=== PATIENT | female | born 1945 | race Caucasian/White ===

== ENCOUNTER 2019-12-13 09:51 | Outpatient (CLI) | payer MEDICARE, SELFPAY ==
--- NOTE | 2019-12-13 09:54 | MM_ITS ---
WS: [id number] BILATERAL DIGITAL SCREENING MAMMOGRAPHY WITH CAD CLINICAL INFORMATION: SCREENING HISTORY: Screening mammogram. No current complaints. COMPARISON: January 09, 2017 TECHNIQUE: Bilateral CC and MLO views. FINDINGS: Scattered fibroglandular densities bilaterally. Musa-like secretory calcifications. Vascular calcifica tion. No suspicious focal mass, asymmetry, calcifications, or architectural distortion. No evidence o f malignancy. MM/[place] [id number] IMPRESSION: BI-RADS: 2-Benign FOLLOW UP: 1 Year Follow-up Recommend return to annual screening mammography.
== END 2019-12-13 09:52 | disposition home or self-care (01) ==
LOC: RADSHAW 09:51
PROVIDERS: Family Provider Nurse Practitioner; PCP Nurse Practitioner; Visit Provider Nurse Practitioner
DX: Z12.31 Encounter for screening mammogram for malignant neoplasm of breast (principal)
CPT/HCPCS: 77067

== ENCOUNTER → 2020-06-17 14:54 | Outpatient (BNVA) | payer MEDICARE, SELFPAY | PROVIDERS: Family Provider Nurse Practitioner; PCP Nurse Practitioner; Visit Provider Nurse Practitioner | DX: E11.65 Type 2 diabetes mellitus with hyperglycemia (principal) | CPT/HCPCS: 80053; 80061; 81000; 83036; 85025 ==

== ENCOUNTER → 2020-09-15 11:45 | Outpatient (BNVA) | payer MEDICARE, SELFPAY | PROVIDERS: Family Provider Nurse Practitioner; PCP Nurse Practitioner; Visit Provider Nurse Practitioner | DX: E11.65 Type 2 diabetes mellitus with hyperglycemia (principal); I10 Essential (primary) hypertension; Z79.4 Long term (current) use of insulin | CPT/HCPCS: 80053; 80061; 83036; 85007 ==

== ENCOUNTER 2020-09-18 08:57 | Outpatient (CLI) | payer MEDICARE, SELFPAY ==
--- NOTE | 2020-09-18 10:30 | CT_ITS ---
WS: [id number] Exam: CT chest abd pel w con* Date/Time of Exam: 09/18/2020 9:12 AM Reason For Exam: enlarge lymph nodes DLP: 2280.[address] scans at [facility] use at least one of these dose optimization techniques: automat ed exposure control; mA and/or kV adjustment per patient size (includes targeted exams where dose is matched to clinical indication); or iterative reconstruction. The chest abdomen pelvis are evaluated in the axial plane with sagittal and coronal reformatted image s. Intravenous contrast was administered. CT scan of the chest. There are enlarged right axillary and right subpectoral lymph nodes. The largest right axillary lymph node measures 1.9 cm in greatest short axis dimension. The largest right subpectoral node measures 1 .6 cm in greatest short axis dimension. There is also a mildly enlarged lymph node in the left neck t hat measures 1.3 cm in greatest short axis dimension. A single slightly prominent mediastinal node me asures 1 cm in greatest short axis dimension and is in the anterior pericarinal region. The lungs are bilaterally clear and fully expanded. No pulmonary mass or nodule. The thoracic aorta is normal in c aliber. The central pulmonary arteries are clear. The airway is patent. No destructive bone lesions a re seen. No pleural or pericardial effusion. Coronary artery calcifications. Signs of previous CABG s urgery. No destructive bone lesions. A cardiac pacer is implanted in the left chest wall. CT/CT chest abd pel w con* IMPRESSION: 1. Significant lymphadenopathy in the right axilla, right subpectoral region an d the left neck. A borderline prominent lymph node in the anterior pericarinal region. 2. No evidence of lung mass or infiltrate. CT scan of the abdomen and pelvis with contrast. The liver, gallbladder, stomach and pancreas are unremarkable. Subcentimeter lo w-attenuation density in the spleen which may represent a small cyst. The splee n is not enlarged. The abdominal aorta is normal in caliber. The portal vein an d IVC are patent. The kidneys are unremarkable. No adrenal masses. There is ret roperitoneal lymphadenopathy. The largest node is along the left periaortic reg ion and measures about 1.3 cm in greatest short axis dimension. Small bowel loo ps are normal in caliber. Normal appendix. No significant large bowel abnormali ty seen. Enlarged lymph node noted along the left pelvic sidewall that measures 2.2 cm at greatest short axis dimension. Urinary bladder is intact. Pelvic jeannette ices are noted. Fat filled periumbilical hernia as well as a fat filled ventral hernia noted. No destructive bone lesions. Moderate degenerative changes of th e lower thoracic and lumbar spine. Moderately advanced spinal canal stenosis at L4-5 secondary to degenerative anterolisthesis, ligamentous thickening and fac et hypertrophy. IMPRESSION: 1. Retroperitoneal and left pelvic lymphadenopathy as discussed above. 2. No sign of abdominal mass, ascites or acute process. 3. Additional nonacute findings as discussed above.
[2020-09-18] MEDS: iohexol 300 mg/mL 100 mL Btl IV (10:52)
[2020-09-18] MEDS: iohexol 300 mg/mL 50 mL Btl PO (10:53)
== END 2020-09-18 08:58 | disposition home or self-care (01) ==
PROVIDERS: PCP Nurse Practitioner; Visit Provider Nurse Practitioner
DX: R59.0 Localized enlarged lymph nodes (principal)
CPT/HCPCS: 71260; 74177; Q9967

== ENCOUNTER 2020-09-21 07:59 | Outpatient (CLI) | payer MEDICARE, SELFPAY ==
--- NOTE | 2020-09-21 08:06 | CT_ITS ---
WS: [id number] CT NECK WITH CONTRAST HISTORY: Enlarged lymph nodes. History of non-Hodgkin's lymphoma. TECHNIQUE: Contiguous 5 mm axial images are performed through the neck with intravenous contrast. Sag ittal and coronal reformats are also submitted. All CT scans at [facility] use at least o ne of these dose optimization techniques: automated exposure control; mA and/or kV adjustment per pat ient size (includes targeted exams where dose is matched to clinical indication); or iterative recons truction. CONTRAST: CONTRAST: Omnipaque 300; 95 mL IV. DLP: 2427.75 mGycm COMPARISON: None available. Nasopharynx, oropharynx, hypopharynx and larynx are unremarkable. No soft tissue masses or abnormal e nhancement. Torus tubarius and fossa of Rosenmuller and parapharyngeal fat are normal. There are small subcentimeter bilateral cervical chain lymph nodes above the level of the thyroid car tilage. At the level VA and VB there are bilateral abnormal lymph nodes. Necrotic lymph node in the L EFT neck at level VB corresponds to the palpable abnormality. This lymph node measures 15 x 20 mm and is necrotic with peripheral enhancement. There are additional enlarged lymph nodes extending inferio rly. Bilateral supraclavicular lymph nodes. Largest supraclavicular lymph node on the LEFT measures 1 2 mm and is rounded. Markedly enlarged RIGHT axillary lymph nodes measuring up to 17 mm which were de scribed on 09/18/2020. Thyroid gland and salivary glands are normally enhancing with no masses. Advanced degenerative changes at C5-6 and C6-7. Visualized portions of the skull base demonstrate no abnormalities. Orbits and globes are within norm al limits. No soft tissue masses. Visualized paranasal sinuses and mastoid air cells are normal. Motion artifact through the upper thorax. Prior median sternotomy. Dual lead LEFT subclavian pacer. CT/CT neck w con* [id number] IMPRESSION: 1. Bilateral level VA and VB, supraclavicular and RIGHT axillary lymphadenopat hy. Consistent with a history of non-Hodgkin's lymphoma. 2. No laryngeal mass identified.
[2020-09-21] MEDS: iohexol 300 mg/mL 100 mL Btl IV (08:28)
== END 2020-09-21 08:00 | disposition home or self-care (01) ==
LOC: RADWPI 08:02
PROVIDERS: PCP Nurse Practitioner; Visit Provider Nurse Practitioner
DX: R59.9 Enlarged lymph nodes, unspecified (principal)
CPT/HCPCS: 70491; Q9967

== ENCOUNTER 2020-10-21 13:05 | Outpatient (CLI) | payer MEDICARE, SELFPAY ==
--- NOTE | 2020-10-21 19:28 | ONC CON_ITS ---
Dr. Kothari New Patient Note Patient: Tiana Thompson Unit #: [id number]: 1945 Dicatated By: Crispin Kothari M.D.Date of Visit: Oct 21, 2020 Onc MED New Patient/Consult Referring Physician: Claire Fonseca Chief Complaint: Lymphoma. History of Present Illness: This is a 74-year-old woman with follicular lymphoma, stage III, initially diagnosed by left cervical lymph node biopsy in December 2017. She had presented with left cervical lymphadenopathy. At the time she was living in [place]. She says she had been aware of it for least several years prior to undergoing left cervical lymph node biopsy on 12/28/2017. Pathology showed B-cell follicular lymphoma which was CD20 positive, CD5 negative, CD10 positive, and BCL-2 positive by IHC. Flow cytometry showed a monotypic B-cell population with cytoplasmic lambda light chain restriction which was positive for CD19, CD20, CD10, and CD38 and negative for CD5, CD43, surface light chains, and CD30. Her staging PET/CT showed diffuse lymphadenopathy within the neck, axilla, abdomen, and pelvis. She was recommended to have treatment with R-CVP, but she preferred to manage it with natural preparations. As such, it has otherwise remained untreated. She moved to this area about a year and a half ago and she is seen now for further management of the lymphoma. She has multiple other medical illnesses including hypertension, hyperlipidemia, type 2 diabetes, and coronary artery disease. She has had several previous TIAs. She is a non-smoker. Her main complaint is that she is having a lot more pain now, which she assumes is due to the lymphoma. The most significant pain is in her belly and groin area on both sides, and she complains that her belly is getting bigger. She is also sore in her neck and armpits. She has fatigue, and she needs to take naps. She moves slowly, but she is able to do light work. ECOG score is 1. Her appetite is not as good, but her weight is stable. She has not had fever. She does have some sweating at night, but not as much now. She has pain in the neck area and she sometimes has trouble swallowing. She says she has shallow breathing, and she does get short of breath with activity. She has cough, but that has been going on for years. She has been having pain in the sternal area ever since her bypass surgery in 2008. She does not otherwise have chest pain. She says she is slightly nauseated almost all the time. She has acid reflux, which she manages with probiotic. Her bowel function has been okay. She has urinary frequency and nocturia, and she also has some urgency with urination. She has some arthritis pain in her hands and feet, and she also has back pain. Lately she has been hurting more down her right leg. That pain is worse with activity. She does not complain of headache. She does get lightheaded and she has a history of vertigo. She now has some carpal tunnel symptoms on the left. Past Medical History: Her medical history includes coronary artery disease, history of TIAs, hyperlipidemia, hypertension, follicular lymphoma, and type II diabetes. Past Surgical History: Her surgical/procedural history includes removal of benign lesions from left side in 1946 and in 1947, replacement of permanent pacemaker in 2014, excision of squamous cell skin cancer in 2009, triple-vessel coronary artery bypass in 2008, carpal tunnel release on the right in 2005, right oophorectomy in 1982, and surgery for ectopic in 1978. Medications: Aspirin Adult 1 Tablet (of 325 mg) Oral daily, Cranberry 1 Capsule Oral daily, Garlic 1 Capsule Oral daily, Celine Root 1 Capsule Oral daily, Ginkoba 1 Tablet Oral daily, Levemir 8 Units (of 100 Units/mL) Subcutaneous t.i.d., Magnesium 1 Capsule Oral daily, NovoLOG (100 Units/mL) Subcutaneous Take as Directed, [place] 3 1 Capsule Oral daily, onion 1 Capsule Oral daily, Potassium Iodide 1 Capsule Oral daily, Taurine 1 Capsule Oral daily, Turmeric 1 Tablet Oral daily, Vitamin B12 1 Tablet Oral daily, Vitamin B6 1 Tablet Oral daily, Vitamin C 1 Capsule (of 500 mg) Oral daily, Vitamin D3 1 Capsule Oral daily Allergies: Atorvastatin Calcium Social History: Ms. Thompson is . She is a non-smoker. She does not drink alcohol. Family History: Father had diabetes and of stroke at age 80. Mother of pneumonia at age 80. She also had breast cancer. Her grandmother had liver cancer and an aunt had uterine cancer. Review Of Symptoms: Constitutional - She has fatigue, and she has to take naps. She generally moves slow, but she is able to do light work. Her appetite is not as good, but her weight is stable. She has no fever. She has had night sweating, but recently not as much. ECOG score is 1, Eyes - She has cataracts and she has had gradual decline in visual acuity, ENMT - She has hearing loss and tinnitus. No sinus congestion/drainage. No mouth sores. She has some pain in her neck/throat and she sometimes has difficulty swallowing, Hematologic/Lymphatic - She has easy bruising. She has some soreness and tenderness associated with lymph nodes in her neck and in her armpits, Respiratory - She has shallow breathing and she has shortness of breath with activity. She has had cough for years. No pleuritic pain or hemoptysis, Cardiovascular - She has been having pain in her sternum ever since her heart surgery. She has no angina pain and no palpitations, Gastrointestinal - She says she is slightly nauseated almost all the time. She has acid reflux. No diarrhea or constipation. No blood in the stool or black stools. She has pain in the abdominal area and she also complains that her belly has been getting bigger, Genitourinary (F) - No dysuria or hematuria. She has urinary frequency and nocturia and she has some urgency with urination. She occasionally has dribbling, Musculoskeletal - She has had chronic pain in her hands and feet and she also has back pain. Lately she has been hurting more down her right leg. It is worse when she walks, Integumentary - She has no skin rash. She has had a skin cancer removed, Neurologic - No headache or dizziness. She gets lightheaded and she has a history of vertigo. She now has symptoms of carpal tunnel on her left side. No other focal neurologic symptoms, Psychiatric - No anxiety or depression. She is awake a lot at night. Vital Signs: Performed on Oct 21, 2020 14:03: 0, 35.66 (HIGH), 1.70 sq.m, 58.00 in, 96 %, 60 /min, 22 /min, 209/97 mm(hg) (HIGH), 98.2 F (LOW), and 170.6 lbs (HIGH). Physical Examination: Constitutional - She appears somewhat weak generally, Eyes - Sclerae nonicteric. Conjunctivae clear, ENMT - No lesions noted in the oral cavity, Neck - No mass or thyromegaly, Hematologic/Lymphatic - There are multiple small nodes palpable on the left side of the neck. I am not able to palpate any axillary adenopathy, Respiratory - Lungs are clear with good air movement bilaterally, Cardiovascular - Heart rhythm is regular. There is no murmur, gallop, or rub noted, Abdomen - Moderately distended. Liver and spleen are not enlarged. There is no abdominal mass or ascites noted. I do not feel any inguinal adenopathy, Back/Spine - No spine or CVA tenderness noted, Extremities - Mild lower extremity edema. There is a palpable dorsalis pedis pulse on the left. I am not able to palpate any pedal pulses on the right, Integumentary - No rashes. No suspicious skin lesions noted, Neurologic - No focal neurologic deficits noted. Lab/Imaging: Her laboratory studies from 09/15/2020 included CBC showing hemoglobin 14.8 g, white blood cell count 9500, and platelet count 252,000. Comprehensive metabolic profile showed normal renal function with BUN 20 and creatinine 0.8 mg/dL. The bilirubin and liver enzymes were normal. Hemoglobin A1c was 7.8% compared to 9.3% in May 2020. CT scans of the chest, abdomen, and pelvis on 09/18/2020 showed enlarged right axillary and right subpectoral lymph nodes, with the largest right axillary node measuring 1.9 cm in greatest dimension. A slightly prominent mediastinal lymph nodes measured up to 1 cm in the anterior pericarinal region. The liver appeared unremarkable and the spleen was not enlarged. There was retroperitoneal lymphadenopathy with the largest node along the left periaortic region measuring 1.3 cm. An enlarged left pelvic sidewall lymph node measured 2.2 cm. Other findings include fat filled periumbilical hernia and fat filled ventral hernia. Moderate degenerative changes were noted in the lower thoracic and lumbar spine. There was moderately advanced spinal canal stenosis at L4-L5 secondary to degenerative anterolisthesis, ligamentous thickening, and facet hypertrophy. Neck CT on 09/21/2020 showed bilateral level VA and VB and supraclavicular lymphadenopathy. The level 5B node appeared necrotic and measured 1.5 x 2.0 cm. The largest supraclavicular lymph node on the left measured 12 mm. Also noted were advanced degenerative changes at C5-6 and C6-7. Impression: 1. Patient with follicular lymphoma, stage III, initially diagnosed by left cervical lymph node biopsy in December 2017. 2. Thus far her CT scans have shown fairly widespread but not bulky lymphadenopathy, and it is uncertain to what extent, if any, the lymphoma is symptomatic. 3. Her CT scans also show degenerative disease of the spine, and there is moderately advanced spinal canal stenosis at L4-5. Her other medical illnesses include: 4. Hypertension. 5. Hyperlipidemia. 6. Type 2 diabetes. 7. Coronary artery disease. 8. She has a history of TIAs. Plan: I reviewed the recent CT findings I also reviewed the CT images with the patient and her daughter. She has stage III follicular lymphoma. By CT scan she has fairly diffuse lymphadenopathy, but it is not bulky and it is unclear to what extent it may be symptomatic. Based on the initial staging PET/CT from 2017, it really does not appear to have shown significant interval progression, and at this point my inclination is just to continue with observation/expectant management. The other concern is that she is having significant pain. It may be due to degenerative arthritis/degenerative disease of the spine, but I am really not certain of that. I am wondering if she may not have some component of arterial insufficiency in her right leg. As such, I will schedule her for an arterial Doppler of the right leg when she comes in for her echocardiogram and CT of the sternum, currently scheduled for the of this month. In the meantime, I will have her start meloxicam 7.5 mg daily and I also will have her start famotidine 20 mg at bedtime. I will tentatively plan a follow-up visit in 1 month. Signed By: Crsipin Kothari M.D. <<Signature on File>>
== END 2020-10-21 13:06 | disposition home or self-care (01) ==
LOC: ONCMED 13:10
PROVIDERS: PCP Nurse Practitioner; Visit Provider Internal Medicine Medical Oncology
DX: C82.98 Follicular lymphoma, unspecified, lymph nodes of multiple sites (principal); I10 Essential (primary) hypertension; E78.5 Hyperlipidemia, unspecified; E11.59 Type 2 diabetes mellitus with other circulatory complications; I25.10 Atherosclerotic heart disease of native coronary artery without angina pectoris; Z86.73 Personal history of transient ischemic attack (TIA), and cerebral infarction without residual deficits; Z79.899 Other long term (current) drug therapy
CPT/HCPCS: 99205

== ENCOUNTER 2020-11-03 10:45 | Outpatient (CLI) | payer MEDICARE, SELFPAY ==
--- NOTE | 2020-11-03 10:51 | USCV_ITS ---
JayTiana Age: 74 Gender: F : 1945 Exam Date: 11/03/2020 11:20 Ordering Phys: Crispin Kothari MD Technologist: Exam Location: [facility] [place]_ Indication: CLAUDICATION RIGHT LEFT Brachial 191.00 mmHg Brachial 197.00 mmHg Pressure (mmHg) Waveform Pressure (mmHg) Waveform 210.00 DPA 122.00 Pre-Exercise Toe Pressure 0.62 Pre-Exercise Toe/Brachial Index FINDINGS Normal resting JOO on the right side Slightly diminished resting TBI on the right side The PVR waveforms are of low amplitude with the loss of dicrotic notch CONCLUSIONS Features of mild peripheral artery disease on the right side Dr Chente Melendrez MD FAC (Electronically Signed) Final Date: 03 November 2020 17:59 S
--- NOTE | 2020-11-03 11:00 | USCV_ITS ---
[place], [place] Age: 74 Gender: F : 1945 Exam Date: 11/03/2020 12:08 Ordering Phys: Jigar Matthew MD ([email or web address]) Technologist: Deandre Carlos Exam Location: [facility] [place] Indication: SOB BP: 134 / 80 HR: 60 Rhythm: Sinus Technical Quality: Adequate MEASUREMENTS (Male / Female) Normal Values 2D ECHO LV Diastolic Diameter PLAX 4.4 cm 4.2 - 5.9 / 3.9 - 5.3 cm LV Systolic Diameter PLAX 3.4 cm IVS Diastolic Thickness 1.3 cm 0.6 - 1.0 / 0.6 - 0.9 cm IVS Systolic Thickness 1.4 cm LVPW Diastolic Thickness 1.3 cm 0.6 - 1.0 / 0.6 - 0.9 cm LVPW Systolic Thickness 1.2 cm LVOT Diameter 2.0 cm LV Ejection Fraction 2D Teich 46.2 % LV Ejection Fraction MOD 2C 69.2 % LV Ejection Fraction 2C AL 69.1 % LA Diameter 4.7 cm LA Width 4.3 cm LA Height 5.1 cm RA Width 3.7 cm RA Height 4.7 cm Aorta at Sinotubular Diameter 2.2 cm M-MODE LV Diastolic Diameter MM 3.9 cm 4.2 - 5.9 / 3.9 - 5.3 cm LV Systolic Diameter MM 2.5 cm LV Ejection Fraction MM Teich 66.1 % IVS Diastolic Thickness MM 1.5 cm 0.6 - 1.0 / 0.6 - 0.9 cm IVS Systolic Thickness MM 1.7 cm LVPW Diastolic Thickness MM 1.7 cm 0.6 - 1.0 / 0.6 - 0.9 cm LVPW Systolic Thickness MM 2.0 cm RV Diastolic Diameter MM 2.8 cm Aortic Annulus Diameter 3.1 cm LA Ao Ratio MM 1.5 MV E Point Septal Separation 0.5 cm DOPPLER AV Peak Velocity 163.0 cm/s LVOT Peak Velocity 89.0 cm/s AV Area Cont Eq vti 1.1 cm squared AV Area Cont Eq pk 1.7 cm squared MV Area PHT 4.9 cm squared Mitral E to A Ratio 1.8 MV E' Velocity 95.0 cm/s TR Peak Velocity 265.3 cm/s TR Peak Gradient 28.2 mmHg TV Peak E Velocity 89.0 cm/s Right Atrial Pressure 8.0 mmHg Pulmonary Artery Systolic Pressu 36.2 mmHg FINDINGS Left Ventricle Normal left ventricular cavity size. Normal left ventricular systolic function. No regional wall motion abnormalities. Left ventricular ejection fraction is estimated at 60 %. Grade III/IV diastolic dysfunction (restrictive filling pattern), severely elevated filling pressures. Right Ventricle The right ventricle is normal in size and function. Right Atrium The right atrium is normal in size. Left Atrium Moderately increased left atrial size. Mitral Valve Moderately thickened mitral valve. No mitral valve stenosis. Moderate mitral valve regurgitation. Aortic Valve Moderate aortic valve calcification. Moderate aortic valve stenosis, mean gradient 6.2 mmHg, SHERRON 1.1 cm squared. No aortic valve regurgitation. Tricuspid Valve [id number] tricuspid valve regurgitation. Pulmonic Valve Structurally normal pulmonic valve without significant stenosis. There is no pulmonic regurgitation. Pericardium Normal pericardium without effusion. Aorta Normal ascending aorta dimension. CONCLUSIONS 1-Normal left ventricular cavity size. Normal left ventricular systolic function. No regional wall motion abnormalities. Left ventricular ejection fraction is estimated at 60 %. Grade III/IV diastolic dysfunction (restrictive filling pattern), severely elevated filling pressures. 2-Moderately increased left atrial size. 3-Moderately thickened mitral valve. No mitral valve stenosis. Moderate mitral valve regurgitation. 4-Moderate aortic valve calcification. Moderate aortic valve stenosis, mean gradient 6.2 mmHg, SHERRON 1.1 cm squared. No aortic valve regurgitation. 9-Arbw-ei-moderate tricuspid valve regurgitation. 6-Right atrial pressure is around 5 mm of mercury. 7-There are no prior echocardiogram studies to compare. Jigar Matthew MD (Electronically Signed) Final Date: 04 November 2020 18:40 S
[2020-11-03] MEDS: iohexol 350 mg/mL 100 mL Btl IV (12:59)
--- NOTE | 2020-11-03 13:00 | CT_ITS ---
WS: [id number] CTA OF THE CHEST WITH PULMONARY EMBOLISM PROTOCOL TECHNIQUE: High-resolution contrast enhanced CTA of the chest with coronal and sagittal reformatted i mages with pulmonary embolism protocol. MIP images are also reviewed. CLINICAL INFORMATION: R07.89 - Other chest pain COMPARISON: CT September 18, 2020 DLP: 586.[address] scans at [facility] use at least one of these dose optimization techniques: automat ed exposure control; mA and/or kV adjustment per patient size (includes targeted exams where dose is matched to clinical indication); or iterative reconstruction. FINDINGS: Proximal main pulmonary arteries are normal. Segmental and subsegmental pulmonary arteries are normal . No evidence of pulmonary embolus. Prior sternotomy. No mediastinal or hilar lymphadenopathy. Normal GE junction. Moderate chronic emphysematous changes. No acute pulmonary infiltrates. No focal consol idation or pleural fluid. Again seen is lymphadenopathy right subpectoral lymph nodes extending to the right axilla. Bulky righ t axillary lymphadenopathy similar to previous. Largest right axillary lymph node measures approximat karina 3.2 CM. Additional prominent lymph nodes in the lower neck and supraclavicular regions bilaterall y similar to previous. Partially visualized lymphadenopathy in the upper abdomen and periaortic Adrenal glands are normal. Mild thoracic kyphosis. Hypertrophic changes thoracic spine. CT/CT angio chest PE protcl [id number] IMPRESSION: 1. No evidence for pulmonary embolus. 2. No acute pulmonary infiltrates. 3. Again seen is the bulky right subpectoral axillary lymphadenopathy with mar kedly enlarged lymph nodes. Recommend clinical correlation. 4. Prominent lymph nodes partially visualized in the lower neck and subclavicu lar regions bilaterally. 5. Lymphadenopathy partially visualized upper abdomen and periaortic similar t o previous.
== END 2020-11-03 10:46 | disposition home or self-care (01) ==
PROVIDERS: PCP Nurse Practitioner; Visit Provider Internal Medicine Cardiovascular Disease
DX: I70.221 Atherosclerosis of native arteries of extremities with rest pain, right leg (principal); R06.02 Shortness of breath; R07.9 Chest pain, unspecified; R59.0 Localized enlarged lymph nodes; I08.3 Combined rheumatic disorders of mitral, aortic and tricuspid valves
CPT/HCPCS: 71275; 93306; 93922

== ENCOUNTER 2020-11-03 10:49 | Outpatient (CLI) | payer MEDICARE, SELFPAY ==
[2020-11-03 11:56] LABS: Blood Urea Nitrogen 15 mg/dL (8-23)
== END 2020-11-03 10:50 | disposition home or self-care (01) ==
LOC: RAD 10:53
PROVIDERS: PCP Nurse Practitioner; Visit Provider Internal Medicine Medical Oncology
DX: C82.98 Follicular lymphoma, unspecified, lymph nodes of multiple sites (principal)
CPT/HCPCS: 36415; 82565; 84520

== ENCOUNTER 2020-11-24 08:55 | Outpatient (CLI) | payer MEDICARE, SELFPAY ==
[2020-11-24 10:49] LABS: Basophils # 0.1 10^3/uL (0.0-0.1); Basophils % 0.9 %; Eosinophils # 0.3 10^3/uL (0.0-0.8); Hematocrit 41.7 % (37.0-47.0); Hemoglobin 13.8 g/dL (11.5-15.3); Lymphocytes # 1.9 10^3/uL (0.8-4.8); Mean Corpuscular HGB Conc 33.1 g/dL (30.0-36.0); Mean Corpuscular Volume 96.8 fL (81-99); Mean Platelet Volume 10.4 fL (7.4-10.4); Monocytes # 0.5 10^3/uL (0.2-0.9); Monocytes % 7.2 %; Neutrophils # 3.85 10^3/uL (1.8-7.7); Neutrophils % 57.7 %; Nucleated Red Blood Cells % 0 %; Platelet Count 204 10^3/cmm (130-400); Red Blood Count 4.31 10^6/uL (4.1-5.3); Red Cell Distribution Width 12.1 % (12.1-15.1); White Blood Count 6.7 10^3/uL (4.0-10.0)
[2020-11-24 11:19] LABS: Alanine Aminotransferase 14 U/L (0-33); Alkaline Phosphatase 67 IU/L (35-105); Anion Gap 13.2 (5-19); Aspartate Amino Transferase 17 U/L (0-32); Blood Urea Nitrogen 21 mg/dL (8-23); Calcium 9.8 mg/dL (8.5-10.5); Carbon Dioxide 27 mmol/L (22-29); Chloride 102 mmol/L (98-107); Globulin 2.8 g/dL (1.3-4.6); Glucose 115 mg/dL (65-115); Lactate Dehydrogenase 199 U/L (135-214); Osmolality Calculated 290 mOsm/kg (285-295); Potassium 4.2 mmol/L (3.5-5.1); Sodium 138 mmol/L (136-145); Thyroid Stimulating Hormone 3.16 uIU/mL (0.27-4.20); Total Bilirubin 0.5 mg/dL (0.15-1.2); Total Protein 6.8 g/dL (6.6-8.7)
[2020-11-24 14:28] LABS: Estmated Average Glucose 151; Hemoglobin A1C 6.9 % (4.0-6.0)
--- NOTE | 2020-11-29 21:49 | ONC FU_ITS ---
[facility] Patient Note Patient: Tiana Thompson Unit #: [id number]: 1945 Dictated By: Claire MerazDate of Visit: Nov 24, 2020 Onc MED Follow-Up/Prog Note Chief Complaint: Lymphoma. History of Present Illness: Ms Thompson is a 74-year-old woman with follicular lymphoma, stage III, initially diagnosed by left cervical lymph node biopsy in December 2017. She had presented with left cervical lymphadenopathy. At the time she was living in [place]. She says she had been aware of it for least several years prior to undergoing left cervical lymph node biopsy on 12/28/2017. Pathology showed B-cell follicular lymphoma which was CD20 positive, CD5 negative, CD10 positive, and BCL-2 positive by IHC. Flow cytometry showed a monotypic B-cell population with cytoplasmic lambda light chain restriction which was positive for CD19, CD20, CD10, and CD38 and negative for CD5, CD43, surface light chains, and CD30. Her staging PET/CT showed diffuse lymphadenopathy within the neck, axilla, abdomen, and pelvis. She was recommended to have treatment with R-CVP, but she preferred to manage it with natural preparations. As such, it has otherwise remained untreated. She moved to this area about a year and a half ago and she was seen by Dr Kothari in for further management of the lymphoma. She has multiple other medical illnesses including hypertension, hyperlipidemia, type 2 diabetes, and coronary artery disease. She has had several previous TIAs. She is a non-smoker. Her main complaint was that she was having a lot more pain, which she assumed was due to the lymphoma. The most significant pain was in her belly and groin area on both sides, and she complains that her belly was getting bigger. She was also sore in her neck and armpits. She has fatigue. She was having some sweating at night, but not as much now. She has pain in the neck area and she sometimes has trouble swallowing. She says she has shallow breathing, and she does get short of breath with activity. She has cough, but that has been going on for years. She has been having pain in the sternal area ever since her bypass surgery in 2008. She does not otherwise have chest pain. She was slightly nauseated almost all the time. She remains on observation at this time. She had stated that she has been very active around the house. She states she jumps on her little trampoline and is up to 400 jumps. She states she has been doing this for about 3 years. Her pain is some better on the meloxicam and her heartburn/nausea is some better on the Pepcid 20 mg at bedtime. She did have an arterial Doppler of the right leg which was negative for significant arterial insufficiency. She also had a CT of the chest on 11/03/2020 is reported there is no evidence for pulmonary embolus. There were no acute pulmonary infiltrates. There was bulky right subpectoral axillary lymphadenopathy with markedly enlarged lymph nodes prominent lymph nodes partially visualized in the lower neck and subclavicular regions bilaterally. Lymphadenopathy was partially visualized upper abdomen and periaortic similar to previous scan from September 18, 2020. She is here today for follow-up. She states overall she is about the same- no worse and maybe a little better . She continues to jump on her trampoline. She states that she is having neck shoulder and axillary pain but is about the same as what it was at her visit in October. She states she is had productive cough for years and is unchanged. She states she is had no night sweats and no weight loss. She is accompanied by her daughter. They do tend to use alternative techniques such as herbal and linen/wool for healing. She has no new complaints today. Past Medical History: Coronary artery disease History of TIAs Hyperlipidemia Hypertension Non-hodgkins lymphoma Type II diabetes Past Surgical History: Removal of benign lesions from left side in 1946 and in 1947 Replacement of permanent pacemaker in 2014 Excision of squamous cell skin cancer in 2009 Triple-vessel coronary artery bypass in 2008 Carpal tunnel release on the right in 2005 Right oophorectomy in 1982 Surgery for ectopic in 1978 Allergies: Atorvastatin Calcium Medications: amLODIPine Besylate 1 Tablet (of 2.5 mg) Oral daily amLODIPine Besylate 1 Tablet (of 2.5 mg) Oral daily Cranberry 1 Capsule Oral daily Famotidine 1 Tablet (of 20 mg) Oral daily PRN Garlic 1 Capsule Oral daily Celine Root 1 Capsule Oral daily Ginkoba 1 Tablet Oral daily Levemir 8 Units (of 100 Units/mL) Subcutaneous t.i.d. Magnesium 1 Capsule Oral daily NovoLOG (100 Units/mL) Subcutaneous Take as Directed [place] 3 1 Capsule Oral daily onion 1 Capsule Oral daily Potassium Iodide 1 Capsule Oral daily Taurine 1 Capsule Oral daily Turmeric 1 Tablet Oral daily Vitamin B12 1 Tablet Oral daily Vitamin B6 1 Tablet Oral daily Vitamin C 1 Capsule (of 500 mg) Oral daily Vitamin D3 1 Capsule Oral daily Family History: Ms. Thompson's mother at age 80: PNEUMONIA, and BREAST CANCER. Ms. Thompson's father at age 80: STROKE. Father had diabetes and of stroke at age 80. Mother of pneumonia at age 80. She also had breast cancer. Her grandmother had liver cancer and an aunt had uterine cancer. Social History: Ms. Thompson is . Ms. Thompson has never smoked. She has no history of drinking. She is a non-smoker. She does not drink alcohol. Review Of Symptoms: Constitutional Denies fevers, chills, night sweats, excessive fatigue or weight loss. Eyes Denies significant visual changes. No diplopia. No amaurosis. ENMT Denies changes in hearing, sore throat, mouth sores, difficulty or changes in swallowing ability, and/or sinus drainage. Hematologic/Lymphatic Denies easy bruising or bleeding. The patient denies any tender or palpable lymph nodes. Respiratory Denies dyspnea on exertion, chest pain, cough or hemoptysis. Denies orthopnea. Cardiovascular Denies anginal chest pain, palpitations or orthopnea. Gastrointestinal Denies nausea, vomiting, diarrhea, GI bleeding, or constipation. Denies change in bowel habits and/or stool color, no heartburn or early satiety. Genitourinary (F) No hematuria, hesitancy, incontinence, vaginal bleeding, discharge or other problems with urination. Musculoskeletal Denies joint pain, swelling or redness. No decreased range of motion. Integumentary Denies chronic rashes, inflammation, ulcerations or skin changes. Neurologic Denies headache, blurred vision, and no areas of focal weakness or numbness. Normal gait. No sensory problems. Psychiatric Denies insomnia, depression, isrrael or mood swings. Vital Signs: Performed on Nov 24, 2020 09:23 Height - 58.00 in Weight - 170.6 lbs BSA - 1.70 sq.m BMI - 35.66 (HIGH) Temperature - 97.4 F (LOW) Pulse - 60 /min Respiration - 18 /min BP - 197/100 mm(hg) (HIGH) O2 Sat - 98 % Pain - 6,1 - No physically strenuous activity, but ambulatory and able to carry out light or sedentary work (e.g. office work, light house work). (ECOG) Physical Examination: Constitutional Alert, oriented, no acute distress. Skin pink, warm and dry. Head Normocephalic; atraumatic. Eyes Conjunctivae and sclerae are clear and without icterus. Pupils are reactive and equal. Respiratory Lungs are clear to auscultation without rhonchi or wheezing. Cardiovascular Regular rate and rhythm of heart without murmurs,clicks, gallops or rubs. Abdomen Non-tender, non-distended, no masses or ascites. Good bowel sounds noted in all quads. No guarding or rebound tenderness. No pulsatile masses. Back/Spine Non-tender to palpation. Extremities No visible deformities, no cyanosis, clubbing or edema. Musculoskeletal No tenderness or swelling, normal range of motion without obvious weakness. Integumentary No rashes or lesions. Neurologic No sensory or motor deficits, normal cerebellar function, normal gait. Psychiatric Alert and oriented times three. Coherent speech. Verbalizes understanding of our discussions today. Laboratory:Test performed on Nov 24, 2020 10:20 LDH (Total) 199 U/L Sodium 138 mmol/L TSH 3.16 uIU/mL Potassium 4.2 mmol/L Chloride 102 mmol/L Est Avg Glucose (eAG) 151 mg/dL CO2 27 mmol/L Anion Gap 13.2 BUN 21 mg/dL Creatinine 0.7 mg/dL Cr Clearance (Est) 86.1400 mL/min Glucose 115 mg/dL Osmolality - Calculated 290 mOsm/kg Calcium 9.8 mg/dL Protein, Total 6.8 g/dL Albumin 4.0 g/dL Globulin 2.8 g/dL Bilirubin, Total 0.5 mg/dL ALT (SGPT) 14 U/L AST (SGOT) 17 U/L Alkaline Phosphatase 67 IU/L Hemoglobin A1C % 6.9 % WBC 6.7 10 3/uL RBC 4.31 10 6/uL HGB 13.8 g/dL HCT 41.7 % MCV 96.8 fL MCH 32.0 pg MCHC 33.1 g/dL RDW 12.1 % Platelet Count 204 10 3/cmm MPV 10.4 fL Neutrophils 3.85 10 3/uL Lymphocytes 1.9 10 3/uL Monocytes 0.5 10 3/uL Eosinophils 0.3 10 3/uL Basophils 0.1 10 3/uL Neutrophil % 57.7 % Lymphocyte % 29.0 % Monocyte % 7.2 % Eosinophil % 5.0 % Basophils % 0.9 % NRBC % 0 % Impression: 1. Patient with follicular lymphoma, stage III, initially diagnosed by left cervical lymph node biopsy in December 2017. 2. Thus far her CT scans have shown fairly widespread but not bulky lymphadenopathy, and it is uncertain to what extent, if any, the lymphoma is symptomatic. 3. Her CT scans also show degenerative disease of the spine, and there is moderately advanced spinal canal stenosis at L4-5. Her other medical illnesses include: 4. Hypertension. 5. Hyperlipidemia. 6. Type 2 diabetes. 7. Coronary artery disease. 8. She has a history of TIAs. Dr Kothari reviewed the recent CT findings and the CT images with the patient and her daughter. She has stage III follicular lymphoma. By CT scan she has fairly diffuse lymphadenopathy, but it is not bulky and it is unclear to what extent it may be symptomatic. Based on the initial staging PET/CT from 2017, it really does not appear to have shown significant interval progression, and at her followup in October 2020, Dr Kothari recommended to just to continue with observation/expectant management. The other concern is that she is having significant pain. It may be due to degenerative arthritis/degenerative disease of the spine, but that is ucertain. She continues to have significant pain per her report with no obvious reasons on her arterial doppler or recent CT. There were no reports of abnormalities of the sternum where she complains of the most pain at this time. Plan: PROBLEMS ADDRESSED TODAY: 1. FOLLICULAR LYMPHOMA: A. I have requested CBC CMP LDH hemoglobin A1c (for type 2 diabetes) to be drawn today. The most recent labs I can find and [facility] were from September 15, 2020. Her blood counts were normal as well as her chemistry. Her hemoglobin A1c was elevated at that time. B. I have also PET CT imaging to further evaluate her disease. Especially complains of the sternum which are showing no abnormalities on CT scans. C. We did discuss pain treatment options for complaints of pain however she is currently doing her herbal supplements and does not want any further prescriptions besides the meloxicam for now. D. We will plan to see her back in 2 weeks if she has had her PET/CT by then. We will also review her labs with her at that time. E. Mrs. Thompson and her daughter were encouraged to contact us in interim should questions or problems arise. F. Total time spent with Ms. Verma and her daughter and review of her current symptoms, her treatment plan???that is her personal treatment plan and recommendations as well as review of her records and subsequent documentation was greater than 60 minutes. Signed By: Claire Meraz-, CNP Crispin Kothari MD <<Signature on File>>
== END 2020-11-24 08:56 | disposition home or self-care (01) ==
LOC: ONCMED 08:59
PROVIDERS: PCP Nurse Practitioner; Visit Provider Nurse Practitioner
DX: C82.98 Follicular lymphoma, unspecified, lymph nodes of multiple sites (principal); E11.65 Type 2 diabetes mellitus with hyperglycemia; I10 Essential (primary) hypertension; E78.5 Hyperlipidemia, unspecified; E11.59 Type 2 diabetes mellitus with other circulatory complications; I25.10 Atherosclerotic heart disease of native coronary artery without angina pectoris; M51.36 Other intervertebral disc degeneration, lumbar region; M48.061 Spinal stenosis, lumbar region without neurogenic claudication; Z86.73 Personal history of transient ischemic attack (TIA), and cerebral infarction without residual deficits; Z79.899 Other long term (current) drug therapy
CPT/HCPCS: 36415; 80053; 83036; 83615; 84443; 85025; 99215

== ENCOUNTER 2020-12-07 14:07 | Outpatient (CLI) | payer MEDICARE, SELFPAY ==
--- NOTE | 2020-12-11 14:49 | ONC FU_ITS ---
Dr. Kothari Patient Follow-Up Note Patient: Tiana Thompson Unit #: [id number]: 1945 Dicatated By: Crispin Kothari M.D.Date of Visit:Dec 07, 2020 Onc Med Follow-up/Prog Note Chief Complaint: Lymphoma. History of Present Illness: This is a 75 year-old woman with follicular lymphoma, stage III, initially diagnosed by left cervical lymph node biopsy in December 2017. She had presented with left cervical lymphadenopathy. At the time she was living in [place]. She says she had been aware of it for least several years prior to undergoing left cervical lymph node biopsy on 12/28/2017. Pathology showed B-cell follicular lymphoma which was CD20 positive, CD5 negative, CD10 positive, and BCL-2 positive by IHC. Flow cytometry showed a monotypic B-cell population with cytoplasmic lambda light chain restriction which was positive for CD19, CD20, CD10, and CD38 and negative for CD5, CD43, surface light chains, and CD30. Her staging PET/CT showed diffuse lymphadenopathy within the neck, axilla, abdomen, and pelvis. She was recommended to have treatment with R-CVP, but she preferred to manage it with natural preparations. As such, it had otherwise remained untreated. She moved to this area in 2018. She had been seeing Carol Chaudhari for primary care. Her CT scans of the chest, abdomen, and pelvis on 09/18/2020 showed enlarged right axillary and right subpectoral lymph nodes, the largest right axillary lymph node measuring 1.9 cm. There were mildly enlarged lymph nodes in the left side of the neck, measuring up to 1.3 cm. There was also retroperitoneal adenopathy with the largest node along the left periaortic region measuring 1.3 cm. An enlarged lymph node on the left side of the pelvic sidewall measured 2.2 cm. Also noted were moderate degenerative changes of the lower thoracic and lumbar spine and there was associated spinal canal stenosis at L4-5 felt to be moderately advanced. I had seen her initially on 10/21/2020. At the time she reported increased pain, the most significant of which was in her abdomen and in her groin area on both sides. I felt that it was relatively unlikely to be due to the lymphoma. Further evaluation with PET/CT on 11/28/2020 showed multiple FDG positive nodes from the level of the head and neck to the level of the pelvis, consistent with active lymphoma. These included mildly FDG positive nodes in the left cervical area measuring up to 1.0 cm and more prominent lymph nodes in the right axillary and subclavicular regions, the largest being a right axillary lymph node measuring 3.0 x 1.8 cm. Left periaortic adenopathy measured 1.4 x 2.7 cm and a left obturator lymph node measured 2.5 x 3.2 cm. Her other medical illnesses include hypertension, hyperlipidemia, type 2 diabetes, and coronary artery disease. She has had several previous TIAs. She is a non-smoker. She is seen for a follow-up visit. She is complaining of increased pain in her back, hips, and down both legs. She also reports having some soreness in her neck and axillary areas. She has limited activity. ECOG score is 1. Her appetite has been good. She has not had fever. She does get hot spells at night with associated sweating. She has shortness of breath and she has a morning cough. She does not complain of chest pain. She has acid reflux and she has ongoing problems with constipation. She reports having frequent urination with some urgency and occasionally with dribbling. She does not complain of headache. She has carpal tunnel symptoms in her left hand. She has no other focal neurologic symptoms. Medications: amLODIPine Besylate 1 Tablet (of 10 mg) Oral daily, amLODIPine Besylate 1 Tablet (of 2.5 mg) Oral daily, Cranberry 1 Capsule Oral daily, Famotidine 1 Tablet (of 20 mg) Oral daily PRN, Garlic 1 Capsule Oral daily, Celine Root 1 Capsule Oral daily, Ginkoba 1 Tablet Oral daily, Levemir 8 Units (of 100 Units/mL) Subcutaneous t.i.d., Magnesium 1 Capsule Oral daily, NovoLOG (100 Units/mL) Subcutaneous Take as Directed, [place] 3 1 Capsule Oral daily, onion 1 Capsule Oral daily, Potassium Iodide 1 Capsule Oral daily, Taurine 1 Capsule Oral daily, Turmeric 1 Tablet Oral daily, Vitamin B12 1 Tablet Oral daily, Vitamin B6 1 Tablet Oral daily, Vitamin C 1 Capsule (of 500 mg) Oral daily, Vitamin D3 1 Capsule Oral daily Allergies: Atorvastatin Calcium Vital Signs: Performed on Dec 07, 2020 14:28 Height - 58.00 in Weight - 173 lbs (HIGH) BSA - 1.71 sq.m BMI - 36.16 (HIGH) Temperature - 98.1 F (LOW) Pulse - 60 /min Respiration - 18 /min BP - 176/83 mm(hg) (HIGH) O2 Sat - 99 % Pain - 7 Fatigue - 8 Physical Examination: Constitutional - She appears somewhat weak generally, Eyes - Sclerae nonicteric. Conjunctivae clear, ENMT - No lesions noted in the oral cavity, Hematologic/Lymphatic - There is posterior cervical adenopathy on the left and there is a palpable right axillary lymph node, Respiratory - Lungs are clear with good air movement bilaterally, Cardiovascular - Heart rhythm is regular. There is a II/ systolic murmur. There is no gallop or rub noted, Abdomen - Moderately distended. Liver and spleen are not enlarged. There is no abdominal mass or ascites noted and there is no inguinal adenopathy noted, Extremities - There is 2+ lower extremity edema, Integumentary - No rashes. No suspicious skin lesions noted, Neurologic - No focal neurologic deficits noted. Lab/Imaging: Test performed on Nov 24, 2020 10:20 LDH (Total) 199 U/L Sodium 138 mmol/L TSH 3.16 uIU/mL Potassium 4.2 mmol/L Chloride 102 mmol/L Est Avg Glucose (eAG) 151 mg/dL CO2 27 mmol/L Anion Gap 13.2 BUN 21 mg/dL Creatinine 0.7 mg/dL Cr Clearance (Est) 86.1400 mL/min Glucose 115 mg/dL Osmolality - Calculated 290 mOsm/kg Calcium 9.8 mg/dL Protein, Total 6.8 g/dL Albumin 4.0 g/dL Globulin 2.8 g/dL Bilirubin, Total 0.5 mg/dL ALT (SGPT) 14 U/L AST (SGOT) 17 U/L Alkaline Phosphatase 67 IU/L Hemoglobin A1C % 6.9 % WBC 6.7 10 3/uL RBC 4.31 10 6/uL HGB 13.8 g/dL HCT 41.7 % MCV 96.8 fL MCH 32.0 pg MCHC 33.1 g/dL RDW 12.1 % Platelet Count 204 10 3/cmm MPV 10.4 fL Neutrophils 3.85 10 3/uL Lymphocytes 1.9 10 3/uL Monocytes 0.5 10 3/uL Eosinophils 0.3 10 3/uL Basophils 0.1 10 3/uL Neutrophil % 57.7 % Lymphocyte % 29.0 % Monocyte % 7.2 % Eosinophil % 5.0 % Basophils % 0.9 % NRBC % 0 % Problem List: 1. Follicular lymphoma, stage III, initially diagnosed by left cervical lymph node biopsy in December 2017. She declined treatment. Her CT scans in August 2020 showed fairly widespread but not bulky lymphadenopathy, I was uncertain to what extent, if any, the lymphoma was symptomatic. 2. Her CT scans also showed degenerative disease of the spine with moderately advanced spinal canal stenosis at L4-5. 3. Hypertension. 4. Hyperlipidemia. 5. Type 2 diabetes. 6. Coronary artery disease. 7. She has a history of TIAs. Problems Addressed with this Encounter and Plan: 1. Follicular lymphoma, stage III, initially diagnosed by left cervical lymph node biopsy in December 2017. She declined treatment. Her CT scans in August 2020 showed fairly widespread but not bulky lymphadenopathy, also confirmed by PET/CT on 11/28/2020. It remains uncertain to what extent, if any, the lymphoma may be symptomatic. We discussed the fact that low-grade lymphoma is typically managed expectantly unless it is symptomatic or at least showing significant progression. There may have been some progression between the August [address] CT and the November 2020 PET/CT, but her adenopathy is still not bulky at this point I really would not expect it to be symptomatic. Furthermore, the SUVs on the PET/CT were just mildly elevated, so that it also appears to be unlikely that she would have a transformed lymphoma. As such, I would continue to recommend observation/expectant management. 2. She has significant pain in the lower back and hips/legs. Her CT scans also showed degenerative disease of the spine with moderately advanced spinal canal stenosis at L4-5, which would appear to be the most likely cause for that. She has been taking meloxicam 7.5 mg daily and it does seem to help, though for just a few hours. As such, I have recommended that she try increasing it to twice daily. 3. She has chronic constipation. She is given instructions to start a bowel regimen with senna/docusate. Signed By: Crispin Kothari M.D. <<Signature on File>>
== END 2020-12-07 14:08 | disposition home or self-care (01) ==
LOC: ONCMED 14:12
PROVIDERS: PCP Nurse Practitioner; Visit Provider Internal Medicine Medical Oncology
DX: C82.98 Follicular lymphoma, unspecified, lymph nodes of multiple sites (principal); M48.061 Spinal stenosis, lumbar region without neurogenic claudication; K59.00 Constipation, unspecified; Z79.899 Other long term (current) drug therapy
CPT/HCPCS: 99214

== ENCOUNTER 2020-12-15 14:16 | Outpatient (CLI) | payer MEDICARE, SELFPAY ==
[2020-12-15 15:37] LABS: 25 Hydroxy Vitamin D 54 ng/mL (30-100); C Reactive Protein 1.2 mg/L (0.0-4.9)
[2020-12-15 15:38] LABS: Erythrocyte Sedimentation Rate 23 mm/hr (0-15)
== END 2020-12-15 14:17 | disposition home or self-care (01) ==
LOC: LAB 14:23
PROVIDERS: PCP Nurse Practitioner; Visit Provider Nurse Practitioner
DX: M47.9 Spondylosis, unspecified (principal); E55.9 Vitamin D deficiency, unspecified
CPT/HCPCS: 36415; 82306; 85651; 86140

== ENCOUNTER 2021-03-17 09:12 | Outpatient (CLI) | payer MEDICARE, SELFPAY ==
[2021-03-17 10:05] LABS: Basophils # 0.1 10^3/uL (0.0-0.1); Basophils % 1.5 %; Eosinophils # 0.3 10^3/uL (0.0-0.8); Hematocrit 43.4 % (37.0-47.0); Hemoglobin 14.3 g/dL (11.5-15.3); Lymphocytes # 1.8 10^3/uL (0.8-4.8); Lymphocytes % 29.9 %; Mean Corpuscular HGB Conc 32.9 g/dL (30.0-36.0); Mean Corpuscular Hemoglobin 31.9 pg (28.0-34.0); Mean Corpuscular Volume 96.9 fL (81-99); Monocytes # 0.7 10^3/uL (0.2-0.9); Monocytes % 10.9 %; Neutrophils # 3.18 10^3/uL (1.8-7.7); Neutrophils % 52.4 %; Nucleated Red Blood Cells % 0 %; Platelet Count 252 10^3/cmm (130-400); Red Blood Count 4.48 10^6/uL (4.1-5.3); Red Cell Distribution Width 11.8 % (12.1-15.1); White Blood Count 6.1 10^3/uL (4.0-10.0)
[2021-03-17 10:23] LABS: Add Urine Microscopic? YES; Bilirubin Urine 1+ (Negative); Blood Urine Neg (Negative); Glucose Urine UA Norm (Normal); Ketones Urine Negative (Negative); Leukocyte Esterase Urine Trace (Negative); Nitrate Urine Negative (Negative); Protein Urine 1+ (Negative); Urine Appearance SL Hazy (CLEAR); Urine Color Yellow (Yellow); Urobilinogen Urine 1 mg/dL (Negative); pH Urine 7 (5-7)
[2021-03-17 10:26] LABS: Alanine Aminotransferase 16 U/L (0-33); Alkaline Phosphatase 64 IU/L (35-105); Anion Gap 12.2 (5-19); Aspartate Amino Transferase 17 U/L (0-32); Blood Urea Nitrogen 15 mg/dL (8-23); Carbon Dioxide 28 mmol/L (22-29); Chloride 103 mmol/L (98-107); Chol HDL Ratio 3.81 mg/dL (0.0-4.40); Cholesterol 198 mg/dL (0-200); Globulin 2.5 g/dL (1.3-4.6); Glucose 102 mg/dL (65-115); HDL Cholesterol 52 mg/dL (60-100); LDL Cholesterol Calculated 131 mg/dL (50-129); Osmolality Calculated 289 mOsm/kg (285-295); Potassium 4.2 mmol/L (3.5-5.1); Sodium 139 mmol/L (136-145); Total Bilirubin 0.4 mg/dL (0.15-1.2); Total Protein 6.5 g/dL (6.6-8.7); Triglycerides 75 mg/dL (0-150); VLDL Cholestrol Calculation 15 mg/dL (0-30)
[2021-03-17 10:29] LABS: Add Urine Culture? Yes; Bacteria Urine 1+ /hpf; RBC Urine 0-4 /hpf (0-2)
[2021-03-17 10:29] LABS: Estmated Average Glucose 151; Hemoglobin A1C 6.9 % (4.0-6.0)
[2021-03-17 10:46] LABS: Lactate Dehydrogenase 180 U/L (135-214)
[2021-03-17 11:21] LABS: Vitamin B12 1685 pg/mL (232-1245)
--- NOTE | 2021-03-18 09:44 | ONC FU_ITS ---
Dr. Kothari Patient Follow-Up Note Patient: Tiana Thompson Unit #: [id number]: 1945 Dicatated By: Crispin Kothari M.D.Date of Visit:Mar 17, 2021 Onc Med Follow-up/Prog Note Chief Complaint: Lymphoma. History of Present Illness: This is a 75 year-old woman with follicular lymphoma, stage III, initially diagnosed by left cervical lymph node biopsy in December 2017. She had presented with left cervical lymphadenopathy. At the time she was living in [place]. She says she had been aware of it for least several years prior to undergoing left cervical lymph node biopsy on 12/28/2017. Pathology showed B-cell follicular lymphoma which was CD20 positive, CD5 negative, CD10 positive, and BCL-2 positive by IHC. Flow cytometry showed a monotypic B-cell population with cytoplasmic lambda light chain restriction which was positive for CD19, CD20, CD10, and CD38 and negative for CD5, CD43, surface light chains, and CD30. Her staging PET/CT showed diffuse lymphadenopathy within the neck, axilla, abdomen, and pelvis. She was recommended to have treatment with R-CVP, but she preferred to manage it with natural preparations. As such, it had otherwise remained untreated. She moved to this area in 2018. She had been seeing Carol Chaudhari for primary care. Her CT scans of the chest, abdomen, and pelvis on 09/18/2020 showed enlarged right axillary and right subpectoral lymph nodes, the largest right axillary lymph node measuring 1.9 cm. There were mildly enlarged lymph nodes in the left side of the neck, measuring up to 1.3 cm. There was also retroperitoneal adenopathy with the largest node along the left periaortic region measuring 1.3 cm. An enlarged lymph node on the left side of the pelvic sidewall measured 2.2 cm. Also noted were moderate degenerative changes of the lower thoracic and lumbar spine and there was associated spinal canal stenosis at L4-5 felt to be moderately advanced. I had seen her initially on 10/21/2020. At the time she reported increased pain, the most significant of which was in her abdomen and in her groin area on both sides. I felt that it was relatively unlikely to be due to the lymphoma. Further evaluation with PET/CT on 11/28/2020 showed multiple FDG positive nodes from the level of the head and neck to the level of the pelvis, consistent with active lymphoma. These included mildly FDG positive nodes in the left cervical area measuring up to 1.0 cm and more prominent lymph nodes in the right axillary and subclavicular regions, the largest being a right axillary lymph node measuring 3.0 x 1.8 cm. Left periaortic adenopathy measured 1.4 x 2.7 cm and a left obturator lymph node measured 2.5 x 3.2 cm. At the time I was uncertain to what extent the lymphoma was actually symptomatic. As such, I had opted to continue her on expectant management. Her other medical illnesses include hypertension, hyperlipidemia, type 2 diabetes, and coronary artery disease. She has had several previous TIAs. She is a non-smoker. She has seen for a follow-up visit. She has not been feeling very good. Since her last visit, she has had worsening pain and weakness in both legs. She also has been having quite a bit of pain in the neck/upper back/shoulder area and in the lower back. She has had a decline in her activity, not only due to the pain and weakness but also due to shortness of breath. Her ECOG score is 3. Her appetite has diminished. Her weight is down 6 pounds by our scale. She has not had fever. She does have night sweating, occasionally with drenching sweats. She has sinus drainage and she has cough when she first gets up. She reports having pain in the sternal area a lot. She has some nausea associated with duloxetine and she sometimes has acid reflux. She has ongoing problems with constipation, though intermittently with watery stools. She has frequent urination, both during the daytime and at night. She has some slight headaches. She has dizziness associated with TIAs. She says her left hand goes a lot. She has pain like ice picks in both feet. Medications: amLODIPine Besylate 1 Tablet (of 10 mg) Oral daily, CeleBREX 1 Capsule (of 200 mg) Oral b.i.d., Cranberry 1 Capsule Oral daily, DULoxetine HCl 1 Capsule (of 20 mg) Capsule Delayed Release Particles Oral daily, Garlic 1 Capsule Oral daily, Celine Root 1 Capsule Oral daily, Ginkoba 1 Tablet Oral daily, Levemir 8 Units (of 100 Units/mL) Subcutaneous t.i.d., Magnesium 1 Capsule Oral daily, NovoLOG (100 Units/mL) Subcutaneous Take as Directed, [place] 3 1 Capsule Oral daily, onion 1 Capsule Oral daily, Potassium Iodide 1 Capsule Oral daily, Taurine 1 Capsule Oral daily, Turmeric 1 Tablet Oral daily, Vitamin B12 1 Tablet Oral daily, Vitamin B6 1 Tablet Oral daily, Vitamin C 1 Capsule (of 500 mg) Oral daily, Vitamin D3 1 Capsule Oral daily Allergies: Atorvastatin Calcium Vital Signs: Performed on Mar 17, 2021 11:00 Height - 58.00 in Weight - 167.6 lbs (LOW) BSA - 1.69 sq.m BMI - 35.03 (HIGH) Temperature - 97.6 F (LOW) Pulse - 56 /min (LOW) Respiration - 18 /min BP - 166/82 mm(hg) (HIGH) O2 Sat - 90 % (LOW) Pain - 7 Physical Examination: Constitutional - She appears generally weak, Eyes - Sclerae nonicteric. Conjunctivae clear, ENMT - No lesions noted in the oral cavity, Hematologic/Lymphatic - There is bilateral cervical adenopathy, more prominent on the left, and there are axillary nodes palpable bilaterally, Respiratory - Lungs are clear with good air movement bilaterally, Cardiovascular - Heart rhythm is regular. There is a II/ systolic murmur. There is no gallop or rub noted, Abdomen - Moderately distended. Liver and spleen are not enlarged. There is no abdominal mass or ascites noted. There is no inguinal adenopathy noted, Extremities - There is mild lower extremity edema. Both feet are cool to touch, but dorsalis pedis pulses are palpable bilaterally, Neurologic - There is some muscle weakness in both legs. Lab/Imaging: Test performed on Mar 17, 2021 09:38 LDH (Total) 180 U/L WBC 6.1 10 3/uL RBC 4.48 10 6/uL HGB 14.3 g/dL HCT 43.4 % MCV 96.9 fL MCH 31.9 pg MCHC 32.9 g/dL RDW 11.8 % Platelet Count 252 10 3/cmm MPV 10.0 fL Neutrophils 3.18 10 3/uL Lymphocytes 1.8 10 3/uL Monocytes 0.7 10 3/uL Eosinophils 0.3 10 3/uL Basophils 0.1 10 3/uL Neutrophil % 52.4 % Lymphocyte % 29.9 % Monocyte % 10.9 % Eosinophil % 5.0 % Basophils % 1.5 % NRBC % 0 % Problem List: 1. Follicular lymphoma, stage III, initially diagnosed by left cervical lymph node biopsy in December 2017. She declined treatment. Her CT scans in August 2020 showed fairly widespread but not bulky lymphadenopathy, I was uncertain to what extent, if any, the lymphoma was symptomatic. 2. Her CT scans also showed degenerative disease of the spine with moderately advanced spinal canal stenosis at L4-5. 3. Hypertension. 4. Hyperlipidemia. 5. Type 2 diabetes. 6. Coronary artery disease. 7. She has a history of TIAs. Problems Addressed with this Encounter and Plan: Patient with follicular lymphoma, stage III, initially diagnosed by left cervical lymph node biopsy in December 2017. She declined treatment. Her CT scans in August 2020 showed fairly widespread but not bulky lymphadenopathy, also confirmed by PET/CT on 11/28/2020. There appeared to be some progression between the August 2020 CT and the November 2020 PET/CT, but the adenopathy was still not bulky and it did not appear to be overlty symptomatic. As such, I had recommended that she continue expectant management. Since her visit in November 2020 she has had worsening pain and weakness in the lower extremities. It is uncertain to what extent those symptoms may be associated with the lymphoma or to the underlying degenerative disease/spinal canal stenosis. There has been interval decrease in her activity tolerance, to the point that she is now having difficulty ambulating. As such, she will be scheduled for restaging CT scans of the chest, abdomen, and pelvis and I also will schedule her for CT scans of the cervical, thoracic, and lumbar spine. She is not eligible for MRI imaging due to her pacemaker. In addition, due to her pain and leg weakness, she now has a mobility limitation which is sufficient to prevent her from accomplishing MRADLs and which is sufficient to put her at risk for fall/injury, and the mobility deficit cannot be sufficiently resolved with a cane or walker. As such, I am requesting a manual transport wheelchair, as it will significantly improve her ability to participate in MRADLs and her daughter will be available at all times to assist her with the use of a wheelchair. Signed By: Crispin Kothari M.D. <<Signature on File>>
== END 2021-03-17 09:13 | disposition home or self-care (01) ==
PROVIDERS: Absent Provider Nurse Practitioner; PCP Nurse Practitioner; Visit Provider Nurse Practitioner
DX: C82.98 Follicular lymphoma, unspecified, lymph nodes of multiple sites (principal); M51.36 Other intervertebral disc degeneration, lumbar region; M48.061 Spinal stenosis, lumbar region without neurogenic claudication; I10 Essential (primary) hypertension; E78.5 Hyperlipidemia, unspecified; E11.59 Type 2 diabetes mellitus with other circulatory complications; I25.10 Atherosclerotic heart disease of native coronary artery without angina pectoris; E11.65 Type 2 diabetes mellitus with hyperglycemia; Z79.4 Long term (current) use of insulin; Z86.73 Personal history of transient ischemic attack (TIA), and cerebral infarction without residual deficits; Z79.899 Other long term (current) drug therapy
CPT/HCPCS: 80053; 80061; 81001; 82607; 83036; 83615; 85025; 87086; 99214

== ENCOUNTER 2021-03-26 10:08 | Outpatient (CLI) | payer MEDICARE, SELFPAY ==
--- NOTE | 2021-03-26 10:21 | CT_ITS ---
WS: [id number] CT scan of the thoracic spine. Additional two-dimensional coronal and sagittal reconstruction was per formed. 03/26/2021 Clinical Data: LYMPHOMA, BACK PAIN, LEG WEAKNESS Comparison: None. DLP: 1029.[address] scans at [facility] use at least one of these dose optimization techniques: automat ed exposure control; mA and/or kV adjustment per patient size (includes targeted exams where dose is matched to clinical indication); or iterative reconstruction. Findings: No compression fractures are seen. There is osteoarthritic spurring of all the thoracic vertebral duane dies. Degenerative disc disease of the lower thoracic vertebral levels is noted. The spinous processe s are in good alignment. The proximal ribs are not remarkable. No bony metastatic disease is seen. Im pression: Negative for thoracic spine fracture. CT/CT thoracic spin wo con* [id number] Impression: 1. Osteoarthritic change of the thoracic vertebral bodies. 2. Negative for bony metastatic disease.
--- NOTE | 2021-03-26 10:21 | CT_ITS ---
WS: [id number] CT cervical spine. Additional two-dimensional coronal and sagittal reconstruction was performed. 2020 Clinical Data: LYMPHOMA, BACK PAIN, LEG WEAKNESS Comparison: CT neck, 09/21/2020. DLP: 1450.[address] scans at [facility] use at least one of these dose optimization techniques: automat ed exposure control; mA and/or kV adjustment per patient size (includes targeted exams where dose is matched to clinical indication); or iterative reconstruction. Findings: No compression fractures are seen. There is degenerative disc narrowing at C5-C6 and C6-C7. There is anterior osteophyte formation at C3-C7 with posterior osteophytes at C5-C6 and C6-C7. There is anteri or subluxation of C4 on C5 of 0.3 cm. The spinous processes are in good alignment. The odontoid is un remarkable. There is no prevertebral soft tissue swelling. The soft tissues of the cervical spine and the lung apices are not remarkable. No bony metastatic lesions are seen. The spinous processes are i n good alignment. CT/CT cervical spin wo con* [id number] Impression: 1. Degenerative change from C3 through C7 with degenerative disc narrowing at C 5-C6 and C6-C7. 2. Anterior subluxation of 0.3 cm of C4 on C5. 3. Negative for metastatic disease of the cervical spine.
--- NOTE | 2021-03-26 10:21 | CT_ITS ---
WS: [id number] CT of the lumbar spine, additional two-dimensional coronal and sagittal imaging was obtained. 1 Clinical Data: LYMPHOMA, BACK PAIN, LEG WEAKNESS Comparison: None. DLP: 1294.[address] scans at [facility] use at least one of these dose optimization techniques: automat ed exposure control; mA and/or kV adjustment per patient size (includes targeted exams where dose is matched to clinical indication); or iterative reconstruction. Findings: There is osteoarthritic change of the L1 and L2 vertebral bodies. There is degenerative dis c disease at T12-L1, L1-L2 and L2-L3. No compression fractures are seen. There is an 0.3 cm anterior subluxation of L4 on L5. Facet joint arthritis is present from L3-L4 to L5-S1. No compression fractur es are noted. No bony metastatic lesions are present. CT/CT lumbar spine wo con* [id number] Impression: 1. 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 2. Degenerative disc disease at T12-L1, L1-L2 and L2-L3. 3. 0.3 cm anterior subluxation of L4 and L5. 4. Facet joint arthritis from L3-L4 to L5-S1. 5. Negative for bony metastatic disease.
--- NOTE | 2021-03-26 10:23 | CT_ITS ---
WS: [id number] CT scan of the chest With IV contrast, CT scan of the abdomen and pelvis with IV contrast and oral contrast. Additional two-dimensional coronal and sagittal reconstruction was performed. 03/26/2021 Clinical Data: LYMPHOMA Comparison: PET scan, 11/28/2020, CTA chest, 11/03/2020. DLP: 2205.[address] scans at [facility] use at least one of these dose optimization techniques: automat ed exposure control; mA and/or kV adjustment per patient size (includes targeted exams where dose is matched to clinical indication); or iterative reconstruction. Findings: Chest: No nodules, masses or effusions are seen. The heart size is slightly enlarged with no pericardial effusion. No pneumonia or pneumothorax is see n. The patient's head coronary artery bypass surgery with midline sternotomy sutures. There is a card iac pacemaker with the generator in the left axilla and wires ending in the right heart. The pulmonary arterial system and thoracic aorta demonstrate no abnormalities or dilatations. There is no significant mediastinal adenopathy. There is a 3.0 cm right axillary lymph node. No bony metastatic lesions are seen in the thorax. The thoracic vertebral bodies show osteoarthritis. Abdomen/pelvis: The liver, gallbladder, spleen, adrenal glands and pancreas are normal. The kidneys show equal bilateral contrast excretion with no cyst or masses. The abdominal aorta is normal in size. No appendicitis or diverticulitis is seen. Oral contrast is in the stomach, small bowel and colon and there is no bowel dilatation. No abscess, ascites, mass, obstruction or free air is seen. There are retroperitoneal lymph nodes in the periaortic region. On the axial image #70 of 133 there is a 2.5 c m periaortic lymph node. There are other smaller lymph nodes noted down into the pelvis. There is a 3 .5 cm lymph node adjacent to the left hip seen best on axial image # 111 of 133. The bladder is unremarkable. The uterus is not No inguinal hernia is seen. The bones of the lumbar spine, pelvis, and hips show osteoarthritis but no bony metastatic lesions. CT/CT chest abd pel w con* Impression: 1. Lymphadenopathy in the right axilla, left peritoneum and left pelvis. 2. Negative for acute cardiopulmonary disease. 3. Negative for acute intra-abdominal or pelvic abnormalities.
[2021-03-26] MEDS: iohexol 300 mg/mL 50 mL Btl PO (11:26)
[2021-03-26] MEDS: iohexol 300 mg/mL 100 mL Btl IV (11:49)
== END 2021-03-26 10:09 | disposition home or self-care (01) ==
PROVIDERS: PCP Nurse Practitioner; Visit Provider Internal Medicine Medical Oncology
DX: C82.98 Follicular lymphoma, unspecified, lymph nodes of multiple sites (principal); R59.0 Localized enlarged lymph nodes
CPT/HCPCS: 71260; 72125; 72128; 72131; 74177; Q9967

== ENCOUNTER 2021-05-18 10:11 | Outpatient (CLI) | payer MEDICARE, SELFPAY ==
[2021-05-18 10:37] LABS: Basophils # 0.1 10^3/uL (0.0-0.1); Basophils % 1.2 %; Eosinophils # 0.2 10^3/uL (0.0-0.8); Eosinophils % 3.4 %; Hematocrit 39.3 % (37.0-47.0); Lymphocytes # 1.6 10^3/uL (0.8-4.8); Lymphocytes % 23.9 %; Mean Corpuscular HGB Conc 33.1 g/dL (30.0-36.0); Mean Corpuscular Hemoglobin 31.5 pg (28.0-34.0); Mean Corpuscular Volume 95.2 fL (81-99); Mean Platelet Volume 10.1 fL (7.4-10.4); Monocytes # 0.6 10^3/uL (0.2-0.9); Monocytes % 8.6 %; Neutrophils # 4.24 10^3/uL (1.8-7.7); Neutrophils % 62.6 %; Nucleated Red Blood Cells % 0 %; Platelet Count 224 10^3/cmm (130-400); Red Blood Count 4.13 10^6/uL (4.1-5.3); Red Cell Distribution Width 12.2 % (12.1-15.1); White Blood Count 6.8 10^3/uL (4.0-10.0)
[2021-05-18 10:56] LABS: Alanine Aminotransferase 27 U/L (0-33); Albumin Level 3.8 g/dL (3.5-5.2); Alkaline Phosphatase 80 IU/L (35-105); Anion Gap 13.3 (5-19); Aspartate Amino Transferase 25 U/L (0-32); Blood Urea Nitrogen 17 mg/dL (8-23); Calcium 9.5 mg/dL (8.5-10.5); Carbon Dioxide 29 mmol/L (22-29); Chloride 100 mmol/L (98-107); Globulin 2.7 g/dL (1.3-4.6); Glucose 207 mg/dL (65-115); Osmolality Calculated 294 mOsm/kg (285-295); Potassium 4.3 mmol/L (3.5-5.1); Sodium 138 mmol/L (136-145); Total Bilirubin 0.3 mg/dL (0.15-1.2); Total Protein 6.5 g/dL (6.6-8.7)
[2021-05-18 12:27] LABS: Lactate Dehydrogenase 210 U/L (135-214)
--- NOTE | 2021-05-21 13:31 | ONC FU_ITS ---
Dr. Kothari Patient Follow-Up Note Patient: Tiana Thompson Unit #: [id number]: 1945 Dicatated By: Crispin Kothari M.D.Date of Visit:May 18, 2021 Onc Med Follow-up/Prog Note Chief Complaint: Lymphoma. History of Present Illness: This is a 75 year-old woman with follicular lymphoma, stage III, initially diagnosed by left cervical lymph node biopsy in December 2017. She had presented with left cervical lymphadenopathy. At the time she was living in [place]. She says she had been aware of it for least several years prior to undergoing left cervical lymph node biopsy on 12/28/2017. Pathology showed B-cell follicular lymphoma which was CD20 positive, CD5 negative, CD10 positive, and BCL-2 positive by IHC. Flow cytometry showed a monotypic B-cell population with cytoplasmic lambda light chain restriction which was positive for CD19, CD20, CD10, and CD38 and negative for CD5, CD43, surface light chains, and CD30. Her staging PET/CT showed diffuse lymphadenopathy within the neck, axilla, abdomen, and pelvis. She was recommended to have treatment with R-CVP, but she preferred to manage it with natural preparations. As such, it had otherwise remained untreated. She moved to this area in 2018. She had been seeing Carol Chaudhari for primary care. Her CT scans of the chest, abdomen, and pelvis on 09/18/2020 showed enlarged right axillary and right subpectoral lymph nodes, the largest right axillary lymph node measuring 1.9 cm. There were mildly enlarged lymph nodes in the left side of the neck, measuring up to 1.3 cm. There was also retroperitoneal adenopathy with the largest node along the left periaortic region measuring 1.3 cm. An enlarged lymph node on the left side of the pelvic sidewall measured 2.2 cm. Also noted were moderate degenerative changes of the lower thoracic and lumbar spine and there was associated spinal canal stenosis at L4-5 felt to be moderately advanced. I had seen her initially on 10/21/2020. At the time she reported increased pain, the most significant of which was in her abdomen and in her groin area on both sides. I felt that it was relatively unlikely to be due to the lymphoma. Further evaluation with PET/CT on 11/28/2020 showed multiple FDG positive nodes from the level of the head and neck to the level of the pelvis, consistent with active lymphoma. These included mildly FDG positive nodes in the left cervical area measuring up to 1.0 cm and more prominent lymph nodes in the right axillary and subclavicular regions, the largest being a right axillary lymph node measuring 3.0 x 1.8 cm. Left periaortic adenopathy measured 1.4 x 2.7 cm and a left obturator lymph node measured 2.5 x 3.2 cm. At the time I was uncertain to what extent the lymphoma was actually symptomatic. As such, I had opted to continue her on expectant management. Her other medical illnesses include hypertension, hyperlipidemia, type 2 diabetes, and coronary artery disease. She has had several previous TIAs. She is a non-smoker. INTERIM HISTORY: Her restaging CT scans on 03/26/2021 showed residual adenopathy in the right axilla, left peritoneum, and left pelvis. She has seen for a follow-up visit. She has been feeling okay, though she continues to have very limited activity. She is able to ambulate short distances with a walker or cane. Her ECOG score is 2. She has good appetite and she has gained weight. She has not had fever. She sometimes wakes up with the hots . She otherwise feels cold all the time. She has had recent cataract surgery on the left eye, and she is scheduled to have the right eye done next month. She has chronic sinus drainage and cough. She is short of breath with activity. She has pain on the left side of her chest, which is chronic. She sometimes gets nauseated and she occasionally has acid reflux. Bowel function has been okay. She has frequent urination. She has a lot of pain. It goes from her neck on down. The most significant pain is in the upper back across the shoulders rating into the left arm. She also has leg cramps. She does not complain of headache, she does get lightheaded and she loses balance very easily. She has carpal tunnel symptoms on her left and she also has some numbness and her right foot. Medications: amLODIPine Besylate 1 Tablet (of 10 mg) Oral daily, CeleBREX 1 Capsule (of 200 mg) Oral b.i.d., Cranberry 1 Capsule Oral daily, DULoxetine HCl 1 Capsule (of 20 mg) Capsule Delayed Release Particles Oral daily, Garlic 1 Capsule Oral daily, Celine Root 1 Capsule Oral daily, Ginkoba 1 Tablet Oral daily, hydroCHLOROthiazide Tablet Oral daily, Levemir 8 Units (of 100 Units/mL) Subcutaneous t.i.d., Magnesium 1 Capsule Oral daily, NovoLOG (100 Units/mL) Subcutaneous Take as Directed, [place] 3 1 Capsule Oral daily, onion 1 Capsule Oral daily, Potassium Iodide 1 Capsule Oral daily, Taurine 1 Capsule Oral daily, Turmeric 1 Tablet Oral daily, Vitamin B12 1 Tablet Oral daily, Vitamin B6 1 Tablet Oral daily, Vitamin C 1 Capsule (of 500 mg) Oral daily, Vitamin D3 1 Capsule Oral daily Allergies: Atorvastatin Calcium Vital Signs: Performed on May 18, 2021 12:26 Height - 58.00 in Weight - 175.6 lbs (HIGH) BSA - 1.72 sq.m BMI - 36.70 (HIGH) Temperature - 97.7 F (LOW) Pulse - 60 /min Respiration - 18 /min BP - 187/79 mm(hg) (HIGH) O2 Sat - 95 % (LOW) Pain - 7 Fatigue - 8 Physical Examination: Constitutional - She appears somewhat weak generally, Eyes - Sclerae nonicteric. Conjunctivae clear, ENMT - No lesions noted in the oral cavity, Hematologic/Lymphatic - There is no cervical, clavicular, or axillary lymphadenopathy noted, Respiratory - Lungs are clear with good air movement bilaterally, Cardiovascular - Heart rhythm is regular. There is a II/ systolic murmur. There is no gallop or rub noted, Chest - There is tenderness to palpation along the left sternal border, Abdomen - Mildly distended. Liver and spleen are not enlarged. There is no abdominal mass or ascites noted. There is no inguinal adenopathy noted, Extremities - Mild edema, Neurologic - There is some weakness in the lower extremities. Lab/Imaging: Test performed on May 18, 2021 10:21 LDH (Total) 210 U/L Sodium 138 mmol/L Potassium 4.3 mmol/L Chloride 100 mmol/L CO2 29 mmol/L Anion Gap 13.3 BUN 17 mg/dL Creatinine 0.7 mg/dL Cr Clearance (Est) 87.32 mL/min Glucose 207 mg/dL Osmolality - Calculated 294 mOsm/kg Calcium 9.5 mg/dL Protein, Total 6.5 g/dL Albumin 3.8 g/dL Globulin 2.7 g/dL Bilirubin, Total 0.3 mg/dL ALT (SGPT) 27 U/L AST (SGOT) 25 U/L Alkaline Phosphatase 80 IU/L WBC 6.8 10 3/uL RBC 4.13 10 6/uL HGB 13.0 g/dL HCT 39.3 % MCV 95.2 fL MCH 31.5 pg MCHC 33.1 g/dL RDW 12.2 % Platelet Count 224 10 3/cmm MPV 10.1 fL Neutrophils 4.24 10 3/uL Lymphocytes 1.6 10 3/uL Monocytes 0.6 10 3/uL Eosinophils 0.2 10 3/uL Basophils 0.1 10 3/uL Neutrophil % 62.6 % Lymphocyte % 23.9 % Monocyte % 8.6 % Eosinophil % 3.4 % Basophils % 1.2 % NRBC % 0 % Problem List: 1. Follicular lymphoma, stage III, initially diagnosed by left cervical lymph node biopsy in December 2017. She declined treatment. Her CT scans in August 2020 showed fairly widespread but not bulky lymphadenopathy, I was uncertain to what extent, if any, the lymphoma was symptomatic. 2. Her CT scans also showed degenerative disease of the spine with moderately advanced spinal canal stenosis at L4-5. 3. Hypertension. 4. Hyperlipidemia. 5. Type 2 diabetes. 6. Coronary artery disease. 7. She has a history of TIAs. Problems Addressed with this Encounter and Plan: Patient with follicular lymphoma, stage III, initially diagnosed by left cervical lymph node biopsy in December 2017. She declined treatment. Her CT scans in August 2020 showed fairly widespread but not bulky lymphadenopathy, also confirmed by PET/CT on 11/28/2020. There appeared to be some progression between the August 2020 CT and the November 2020 PET/CT, but the adenopathy was still not bulky and it did not appear to be overlty symptomatic. As such, I had recommended that she continue expectant management. Following her visit in November 2020 she had worsening pain and weakness in the lower extremities. Her restaging CT scans showed residual adenopathy in the right axilla, left peritoneum, and left pelvis, but it was again not bulky or otherwise overtly symptomatic. She continues to have very limited activity, but her overall clinical status appears stable. As such, she will continue on expectant management. I will see her again in 6 months, or sooner as needed. Signed By: Crispin Kothari M.D. <<Signature on File>>
== END 2021-05-18 10:12 | disposition home or self-care (01) ==
LOC: ONCMED 10:13
PROVIDERS: PCP Nurse Practitioner; Visit Provider Internal Medicine Medical Oncology
DX: C82.21 Follicular lymphoma grade III, unspecified, lymph nodes of head, face, and neck (principal); M47.816 Spondylosis without myelopathy or radiculopathy, lumbar region; M48.061 Spinal stenosis, lumbar region without neurogenic claudication; I10 Essential (primary) hypertension; E78.5 Hyperlipidemia, unspecified; E11.9 Type 2 diabetes mellitus without complications; I25.10 Atherosclerotic heart disease of native coronary artery without angina pectoris; Z86.73 Personal history of transient ischemic attack (TIA), and cerebral infarction without residual deficits
CPT/HCPCS: 36415; 80053; 83615; 85025; G0463

== ENCOUNTER → 2022-01-10 12:56 | Outpatient (BNVA) | payer MEDICARE, SELFPAY | PROVIDERS: PCP Nurse Practitioner; Visit Provider Family Medicine | DX: E11.69 Type 2 diabetes mellitus with other specified complication (principal); E66.9 Obesity, unspecified; I10 Essential (primary) hypertension; L98.9 Disorder of the skin and subcutaneous tissue, unspecified; M25.512 Pain in left shoulder; G89.29 Other chronic pain; M19.012 Primary osteoarthritis, left shoulder | CPT/HCPCS: 73030; 80053; 80061; 83036; 84443; 85025 ==

== ENCOUNTER 2022-03-04 11:59 | Outpatient (CLI) | payer MEDICARE, SELFPAY ==
--- NOTE | 2022-03-04 12:30 | CT_ITS ---
WS: [id number] CT LEFT SHOULDER, WITHOUT CONTRAST. HISTORY: M25.512 - Pain in left shoulder Technique: All CT scans at [facility] use at least one of these dose optimization techniques: automated exposure control; mA and/or kV adjustment per patient size (includes targeted exams where dose is matched to clinical indication); or iterative reconstruction. DLP: 915.42 mGy-cm. COMPARISON: 01/10/2022 No acute fracture or dislocation. Moderate to severe narrowing of the glenohumeral joint. Joint space narrowing with osteophytic ridging and small subchondral cysts at the humeral head and glenoid. Ther e is a more focal osteophyte along the anterior glenohumeral articulation. No loose body within the j oint. Mild AC joint narrowing. No joint effusion is identified. No significant atrophy of the rotator cuff muscles. Visualized upper lung is clear. CT/CT shoulder LT wo con* [id number] IMPRESSION: 1. No acute fracture or dislocation. 2. Moderate to severe narrowing of the glenohumeral joint with a more focal hy pertrophic osteophyte narrowing the anterior joint space. 3. Mild humeral head osteophytic ridging.
== END 2022-03-04 12:00 | disposition home or self-care (01) ==
PROVIDERS: PCP Nurse Practitioner; Visit Provider Family Medicine
DX: M25.512 Pain in left shoulder (principal)
CPT/HCPCS: 73200

== ENCOUNTER → 2022-03-16 15:34 | Outpatient (BNVA) | payer OTHER, SELFPAY | PROVIDERS: PCP Nurse Practitioner; Referring Provider Family Medicine; Visit Provider Specialist | DX: M25.512 Pain in left shoulder (principal); G89.29 Other chronic pain | CPT/HCPCS: 73030 ==

== ENCOUNTER 2022-04-05 13:06 | Outpatient (RCR) | payer MEDICARE, SELFPAY | END 2022-04-19 23:59 | disposition home or self-care (01) | LOC: SPT 13:06 | PROVIDERS: PCP Nurse Practitioner; Referring Provider Specialist; Visit Provider Specialist | DX: M19.012 Primary osteoarthritis, left shoulder (principal) | CPT/HCPCS: 97162 ==

== ENCOUNTER 2022-04-20 06:00 | Outpatient (RCR) | payer MEDICARE, SELFPAY | END 2022-05-19 23:59 | disposition home or self-care (01) | LOC: SPT 06:00 | PROVIDERS: Referring Provider Specialist; Visit Provider Specialist | DX: M19.012 Primary osteoarthritis, left shoulder (principal) | CPT/HCPCS: 97110 ==

== ENCOUNTER 2022-05-05 08:34 | Emergency (ER) | payer MEDICARE, SELFPAY ==
[2022-05-05 08:39] VITALS: BP 213/95; PULSE 59; RESP 16; TEMP 36.2; O2SAT 95; BMI 41.4
[2022-05-05 09:53] LABS: Basophils # 0.1 10^3/uL (0.0-0.1); Basophils % 0.7 %; Eosinophils # 0.1 10^3/uL (0.0-0.8); Eosinophils % 1.3 %; Hematocrit 45.4 % (37.0-47.0); Hemoglobin 15.1 g/dL (11.5-15.3); Lymphocytes # 1.2 10^3/uL (0.8-4.8); Lymphocytes % 11.2 %; Mean Corpuscular HGB Conc 33.3 g/dL (30.0-36.0); Mean Corpuscular Hemoglobin 32.5 pg (28.0-34.0); Mean Corpuscular Volume 97.6 fl (81-99); Mean Platelet Volume 10.4 fL (7.4-10.4); Monocytes # 0.4 10^3/uL (0.2-0.9); Monocytes % 3.9 %; Neutrophils % 82.5 %; Nucleated Red Blood Cells % 0 %; Platelet Count 208 10^3/cmm (130-400); Red Blood Count 4.65 10^6/uL (4.1-5.3); Red Cell Distribution Width 12.6 % (12.1-15.1); White Blood Count 10.5 10^3/uL (4.0-10.0)
[2022-05-05 10:05] VITALS: BP 190/93; PULSE 60; RESP 17; O2SAT 95
[2022-05-05 10:11] LABS: Alanine Aminotransferase 99 U/L (0-33); Albumin Level 4.2 g/dL (3.5-5.2); Alkaline Phosphatase 107 IU/L (35-105); Aspartate Amino Transferase 184 U/L (0-32); Blood Urea Nitrogen 21 mg/dL (8-23); Carbon Dioxide 24 mmol/L (22-29); Chloride 103 mmol/L (98-107); Globulin 3.5 g/dL (1.3-4.6); Glucose 201 mg/dL (65-115); Osmolality Calculated 297 mOsm/kg (285-295); Sodium 139 mmol/L (136-145); Total Bilirubin 1.5 mg/dL (0.15-1.2); Total Protein 7.7 g/dL (6.6-8.7)
[2022-05-05 10:18] LABS: Anion Gap 16.3 (5-19); Potassium 4.3 mmol/L (3.5-5.1)
[2022-05-05 10:19] LABS: Lipase 1778 U/L (13-60)
--- NOTE | 2022-05-05 10:23 | CT_ITS ---
WS: [id number] CT ABDOMEN AND PELVIS WITH CONTRAST HISTORY: abd pain, elevated lipase, ast, alt, history of lymphoma. TECHNIQUE: Imaging performed of the abdomen and pelvis with IV contrast. Single phase imaging of the abdomen. Coronal and sagittal reformats are submitted. All CT scans at [facility] use at [address] one of these dose optimization techniques: automated exposure control; mA and/or kV adjustment per patient size (includes targeted exams where dose is matched to clinical indication); or iterative re construction. IV CONTRAST: Omnipaque 350; 75 mL IV. Oral contrast: No DLP: 1450.49 mGy.cm COMPARISON: 03/26/2021 Lower thorax: Lung bases are clear. Heart is normal size. Small hiatal hernia. Liver/biliary system: Normal size with no intrahepatic dilatation. There is mild wall enhancement of the common bile duct although no dilatation. Gallbladder: Mildly enlarged and elongated gallbladder. No hydrops. Transverse diameter of the gallbl adder is 3.1 cm. No adjacent inflammation. Pancreas: There is a small amount of stranding and inflammation at the pancreatic head and uncinate p rocess and along the transverse duodenum. The pancreatic duct is not dilated. The common bile duct lo oks normal in diameter. Spleen: Normal size spleen. No mass or infarct. Adrenal glands: Normal. Right kidney: Cortical thinning with no obstruction. Left kidney: Cortical thinning with no obstruction. Aorta: Mild atherosclerosis aorta. No aneurysm. Lymphadenopathy: No gastrohepatic or gastrosplenic ligament adenopathy. No lymph nodes in the wilver h epatis. Small celiac axis and precaval lymph nodes are reidentified. Retroperitoneal lymph nodes are still identified. Majority of these have decreased in size. The largest now measures 1.4 cm along the LEFT retroperitoneum there are small LEFT iliac chain lymph nodes. The largest lymph node in the pel vis is a LEFT obturator lymph node at 2.1 cm which is slightly decreased from 2.4 cm on the prior danni dy. Free fluid: None. GI tract: Unremarkable. Abdominal wall: Small fat-containing umbilical hernia. Pelvis: No free fluid. No inguinal lymph node. LEFT obturator lymph node measures 2.1 cm which is dec reased in size since 03/26/2021. Bones: Increase in the lumbar lordosis. L4 anterolisthesis by 6 mm. Facet joint arthritis and disc di sease. CT/CT abdomen pelvis w con* [id number] IMPRESSION: 1. New very mild area of inflammation surrounding the duodenal C-loop and the pancreatic head/uncinate process. Consider duodenitis and a focal pancreatitis. 2. Numerous small lymph nodes near the celiac axis, precaval, LEFT retroperito alex and LEFT obturator regions. These lymph nodes were previously described on 03/26/2021 and overall decreased in size and number. 3. No ascites. 4. Normal appendix. 5. Mildly elongated gallbladder but no evidence for acute cholecystitis. 6. Normal size of the common bile duct although there is wall enhancement. Cor relate for possible cholangitis. Inflammation noted within the duodenum at the ampulla of Vater.
[2022-05-05] MEDS: iohexol 350 mg/mL 100 mL Btl IV (10:47)
--- NOTE | 2022-05-05 10:51 | ED_ITS ---
HPI - Abdominal Pain General: Chief Complaint: Abdominal Pain Stated Complaint: abd pain Time Seen by Provider: 05/05/22 09:34 History of Present Illness: 76-year-old female presents with a couple days of epigastric abdominal pain. She reports that is been going on and off but is gen erally better the last day or 2. Patient is concerned that it is her gallbladder. Patient has been told in the past that she has a bad gallbladder that needs to come out. She has not followed up with this. Patient has some mild nausea no reports of vomiting. Patient's pain mildly radiates around her upper bilateral flanks with some mild discomfort in the right upper quadrant. She denies fever, chills, cough, shortness of breath. Associated Symptoms: Reports nausea; Denies chills, fever(s) and vomiting Review of Systems Const: Denies: fever(s) or chills Card: Denies: chest pain or palpitations Resp: Denies: dyspnea, productive cough or non-productive cough GI: Reports: abdominal pain and nausea; Denies: vomiting : Denies: flank pain or difficulty voiding Musc: Denies: neck pain, back pain or extremity pain Skin/Breast: Denies: rash or pruritus Neuro: Denies: headache(s) or numbness in extremities Psych: Denies: anxiety or depression PFSH ED PFSH: Medical History CAD (coronary artery disease) Chest pain CHF (congestive heart failure) Conflicted attitude towards medication management Controlled type 2 diabetes mellitus with hyperglycemia, with long-term current use of insulin Controlled type 2 diabetes mellitus with hyperglycemia, without long-term current use of insulin DDD (degenerative disc disease), lumbar Emphysema, unspecified Essential (primary) hypertension History of pacemaker 2nd Non-Hodgkin lymphoma 2015 OA (osteoarthritis of spine) Obesity Use of cane as ambulatory aid Surgical History History of carpal tunnel surgery right Ovary removal, prophylactic Presence of aortocoronary bypass graft Family History Other Bleeding disorder Cancer Diabetes Hypertension Denies family history of Anesthesia complication Social History Smoking and tobacco status: former smoker Second hand smoke exposure: No Smoking risk assessment/counseling performed?: No Alcohol intake: never Desire information about alcohol rehabilitation?: No Counseling given: No Desire information about substance/drug rehabilitation?: No Counseling given: No Adopted: No Caregiver/support person: No Lives independently: Yes Household members: children Housing: House Marital status: / Number of children: 5 service: No Current occupational status: unemployed and retired History of recent travel: No Sexually active: No Current gender identity: Female Course Vital Signs: Vital signs: Vital Signs Temperature 97.1 F L 05/05/22 08:39 Pulse Rate 60 05/05/22 10:05 Respiratory Rate 17 05/05/22 10:05 Blood Pressure 190/93 05/05/22 10:05 Pulse Oximetry 95 05/05/22 10:05 MDM - Abdominal Pain Medical Decision Making Patient with pancreatitis. CT shows pancreatitis but no evidence of acute cholecystitis. Ultrasound also shows no evidence of acute cholecystitis or cholangitis. Patient was offered admission however she would prefer to go home. I discussed with her clear liquid diet for the next 48 hours and advance as tolerated, pain control and nausea control. She should return to the ER as needed if symptoms worsen. I did ask her to follow with her primary care provider in a couple days for recheck of her labs and symptoms. Patient was stable and discharged home Lab Data : 05/05/22 09:42 05/05/22 09:42 Labs/Radiology: Radiology Impressions Abdomen/Pelvis CT 05/05/22 10:23 IMPRESSION: 1. New very mild area of inflammation surrounding the duodenal C-loop and the pancreatic head/uncinate process. Consider duodenitis and a focal pancreatitis. 2. Numerous small lymph nodes near the celiac axis, precaval, LEFT retroperitoneal and LEFT obturator regions. These lymph nodes were previously described on 03/26/2021 and overall decreased in size and number. 3. No ascites. 4. Normal appendix. 5. Mildly elongated gallbladder but no evidence for acute cholecystitis. 6. Normal size of the common bile duct although there is wall enhancement. Correlate for possible cholangitis. Inflammation noted within the duodenum at t he ampulla of Vater. Gallbladder Ultrasound 05/05/22 11:53 IMPRESSION: 1. Cholelithiasis without evidence for acute cholecystitis. There are numerous stones layering within the gallbladder. Very tiny stones present. 2. Nondilated common bile duct and the wall is not as well-visualized as by CT. No stones identified within the common bile duct. Laboratory Results WBC 10.5 10^3/uL (4.0-10.0) H 05/05/22 09:42 RBC 4.65 10^6/uL (4.1-5.3) 05/05/22 09:42 Hgb 15.1 g/dL (11.5-15.3) 05/05/22 09:42 Hct 45.4 % (37.0-47.0) 05/05/22 09:42 MCV 97.6 fl (81-99) 05/05/22 09:42 MCH 32.5 pg (28.0-34.0) 05/05/22 09:42 MCHC 33.3 g/dL (30.0-36.0) 05/05/22 09:42 RDW 12.6 % (12.1-15.1) 05/05/22 09:42 Plt Count 208 10^3/cmm (130-400) 05/05/22 09:42 MPV 10.4 fL (7.4-10.4) 05/05/22 09:42 Neut % (Auto) 82.5 % 05/05/22 09:42 Lymph % (Auto) 11.2 % 05/05/22 09:42 Walsh % (Auto) 3.9 % 05/05/22 09:42 Eos % (Auto) 1.3 % 05/05/22 09:42 Baso % (Auto) 0.7 % 05/05/22 09:42 Neut # (Auto) 8.70 10^3/uL (1.8-7.7) H 05/05/22 09:42 Lymph # (Auto) 1.2 10^3/uL (0.8-4.8) 05/05/22 09:42 Walsh # (Auto) 0.4 10^3/uL (0.2-0.9) 05/05/22 09:42 Eos # (Auto) 0.1 10^3/uL (0.0-0.8) 05/05/22 09:42 Baso # (Auto) 0.1 10^3/uL (0.0-0.1) 05/05/22 09:42 Nucleated RBC % (auto) 0 % 05/05/22 09:42 Nucleated RBCs # 0.0 /100WBC 05/05/22 09:42 Sodium 139 mmol/L (136-145) 05/05/22 09:42 Potassium 4.3 mmol/L (3.5-5.1) 05/05/22 09:42 Chloride 103 mmol/L (98-107) 05/05/22 09:42 Carbon Dioxide 24 mmol/L (22-29) 05/05/22 09:42 Anion Gap 16.3 (5-19) 05/05/22 09:42 BUN 21 mg/dL (8-23) 05/05/22 09:42 Creatinine 0.7 mg/dL (0.5-0.9) 05/05/22 09:42 GFR Calculation Not Reportable 05/05/22 09:42 Glucose 201 mg/dL (65-115) H 05/05/22 09:42 Calculated Osmolality 297 mOsm/kg (285-295) H 05/05/22 09:42 Calcium 10.0 mg/dL (8.5-10.5) 05/05/22 09:42 Total Bilirubin 1.5 mg/dL (0.15-1.2) H 05/05/22 09:42 AST 184 U/L (0-32) H 05/05/22 09:42 ALT 99 U/L (0-33) H 05/05/22 09:42 Alkaline Phosphatase 107 IU/L (35-105) H 05/05/22 09:42 Total Protein 7.7 g/dL (6.6-8.7) 05/05/22 09:42 Albumin 4.2 g/dL (3.5-5.2) 05/05/22 09:42 Globulin 3.5 g/dL (1.3-4.6) 05/05/22 09:42 Lipase 1778 U/L (13-60) H 05/05/22 09:42 Urine Color Yellow (Yellow) 05/05/22 09:54 Urine Appearance Clear (CLEAR) 05/05/22 09:54 Urine pH 5 (5-7) 05/05/22 09:54 Ur Specific [place] 1.020 (1.005-1.030) 05/05/22 09:54 Urine Protein 3+ (Negative) H 05/05/22 09:54 Urine Glucose (UA) Norm (Normal) 05/05/22 09:54 Urine Ketones 1+ (Negative) H 05/05/22 09:54 Urine Blood Neg (Negative) 05/05/22 09:54 Urine Nitrate Negative (Negative) 05/05/22 09:54 Urine Bilirubin Neg (Negative) 05/05/22 09:54 Urine Urobilinogen Norm mg/dL (Negative) 05/05/22 09:54 Ur Leukocyte Esterase Negative (Negative) 05/05/22 09:54 Urine RBC 0-4 /hpf (0-2) H 05/05/22 09:54 Urine WBC 0-4 /hpf (0-5) H 05/05/22 09:54 Ur Squamous Epith Cells 0-4 /hpf (0-5) H 05/05/22 09:54 Amorphous Sediment 1+ /hpf 05/05/22 09:54 Urine Bacteria 1+ /hpf (NONE) H 05/05/22 09:54 Discharge Plan Discharge Patient Disposition: Home Clinical Impression: Acute pancreatitis Condition: Stable Prescriptions: New hydrocodone-acetaminophen 5-325 mg tablet 1 tab PO Q8H Qty: 10 0RF Rx Instructions: 1/2 to 1 tablet every 8 hours as needed for pain ondansetron 4 mg tablet,disintegrating 4 mg PO Q6H PRN (Reason: nausea and vomiting) Qty: 20 0RF No Action (DME) Wheel chair light weight K0003 See Rx Instructions .Route .MEDSUPPLY Qty: 1 0RF Rx Instructions: use 99 months cholecalciferol (vitamin D3) 25 mcg (1,000 unit) capsule 25 mcg PO DAILY 0RF vitamin E 200 unit capsule 400 unit PO DAILY 0RF pyridoxine (vitamin B6) 250 mg tablet 250 mg PO DAILY 0RF ascorbic acid (vitamin C) 500 mg capsule 1,000 mg PO DAILY 0RF insulin aspart U-100 [Novolog Flexpen U-100 Insulin] 100 unit/mL (3 mL) insulin pen See Rx Instructions SUBCUT TID Qty: 15 2RF Rx Instructions: 120-150=3U,151-200=6U,201-250=9U,251-300=12U,301-350=15U,351-400=18U,401>=21 (DME) pen needle, diabetic 33 gauge x 5/32 needle See Rx Instructions .ROUTE .MEDSUPPLY Qty: 100 5RF Rx Instructions: 4 times day (DME) insulin syringe-needle U-100 [BD Insulin Syringe Ultra-Fine] 0.3 mL 31 gauge x 5/16 syringe See Rx Instructions .Route Qty: 100 5RF Rx Instructions: use 3 times day with meals (DME) blood-glucose meter Misc See Rx Instructions .Route Qty: 1 0RF Rx Instructions: As directed (DME) True Metrix Glucose Test Strip Strip See Rx Instructions .ROUTE .COMPLEX Qty: 150 4RF Dose Instruction: TEST BLOOD SUGAR THREE TIMES DAILY Rx Instructions: TEST BLOOD SUGAR THREE TIMES DAILY Levemir FlexTouch U-100 Insuln 100 unit/mL (3 mL) insulin pen See Rx Instructions .ROUTE .COMPLEX Qty: 30 1RF Dose Instruction: INJECT 30 UNITS SUBCUTANEOUSLY EVERY DAY Rx Instructions: INJECT 30 UNITS SUBCUTANEOUSLY EVERY DAY amlodipine 2.5 mg tablet 2.5 mg PO DAILY Qty: 90 0RF Discharge Orders: Discharge ED (Routine); Ordered 05/05/22 Ordered By: Poli Blair Discharge Diet: Clear Liquid Discharge Activity: Resume usual activity Patient Instructions: Pancreatitis (ED), Clear Liquid Diet (ED), Opioid Safety Activity Restrictions/Additional Instructions: Clear liquid diet for 48 hours then slowly advance Follow-up with your primary care provider and 2 to 3 days for recheck, return to the ER as needed if symptoms worsen Coding Level of Care Code ED Death Claim Examiner for Dolly Servin
[2022-05-05 11:20] LABS: Add Urine Microscopic? YES; Bilirubin Urine Neg (Negative); Blood Urine Neg (Negative); Glucose Urine UA Norm (Normal); Ketones Urine 1+ (Negative); Leukocyte Esterase Urine Negative (Negative); Nitrate Urine Negative (Negative); Protein Urine 3+ (Negative); Urine Appearance Clear (CLEAR); Urine Color Yellow (Yellow); Urobilinogen Urine Norm (Negative); pH Urine 5 (5-7)
[2022-05-05 11:21] LABS: Amorphous Sediment Urine 1+ /hpf; Bacteria Urine 1+ /hpf; RBC Urine 0-4 /hpf (0-2); Squamous Epithelial Cell Urine 0-4 /hpf (0-5); WBC Urine 0-4 /hpf (0-5)
--- NOTE | 2022-05-05 11:53 | US_ITS ---
WS: [id number] RIGHT UPPER QUADRANT ULTRASOUND HISTORY: ? Cholangitis/gallstones. COMPARISON: 08/21/[address] 05/05/2022. Liver: 11.9 cm in length. Surface of the liver is slightly nodular suggesting changes of early cirrho sis. No bile duct dilatation or mass. Portal Vein: Normal hepatopetal flow with monophasic waveform. Gallbladder: Normally distended gallbladder. There is very mild irregularity involving the gallbladde r wall but no thickening. Numerous stones are present within the gallbladder. These are very tiny sto dona layering posteriorly. CBD: 0.5 cm, CBD is not dilated and only very limited visualization by ultrasound. On the recent CT t he common bile duct wall was hyperdense with enhancement. Pancreas: Not well visualized. Right kidney: 9.8 cm in length. Normal size and echogenicity. No hydronephrosis or mass. Aorta and IVC: Unremarkable abdominal aorta and IVC. No ascites. US/US gall bladder [id number] IMPRESSION: 1. Cholelithiasis without evidence for acute cholecystitis. There are numerous stones layering within the gallbladder. Very tiny stones present. 2. Nondilated common bile duct and the wall is not as well-visualized as by CT . No stones identified within the common bile duct.
[2022-05-05] MEDS: sodium chloride 0.9% 500 ML IV (11:58)
[2022-05-05] MEDS: famotidine 20 mg/2 mL INJ 40 MG IVP (11:58)
[2022-05-05] MEDS: fentaNYL 50 mcg/mL INJ 2mL 25 MCG IVP (12:12)
[2022-05-05 14:27] VITALS: BP 202/98; PULSE 60; RESP 16; O2SAT 95
[2022-05-06 14:49] LABS: Chol HDL Ratio 4.07 mg/dL (0.0-4.40); Cholesterol 232 mg/dL (0-200); HDL Cholesterol 57 mg/dL (60-100); LDL Cholesterol Calculated 158 mg/dL (50-129); LDL HDL Ratio 2.77 RATIO (0.00-3.22); Triglycerides 84 mg/dL (0-150)
[2022-05-06 15:14] LABS: Estmated Average Glucose 169; Hemoglobin A1C 7.5 % (4.0-6.0)
== END 2022-05-05 13:34 | disposition home or self-care (01) ==
PROVIDERS: Family Medicine; Physician Assistant; Emergency Provider Student in an Organized Health Care Education/Training Program
DX: R10.13 Epigastric pain (principal); K85.90 Acute pancreatitis without necrosis or infection, unspecified
CPT/HCPCS: 74177; 76705; 80053; 80061; 81001; 83036; 83690; 85025; 96361; 96374; 96375; 99284; J3010; J3490; J7040; Q9967

== ENCOUNTER → 2022-05-12 13:39 | Outpatient (BNVA) | payer MEDICARE, SELFPAY | PROVIDERS: PCP Family Medicine; Visit Provider Family Medicine | DX: K85.90 Acute pancreatitis without necrosis or infection, unspecified (principal); Z09 Encounter for follow-up examination after completed treatment for conditions other than malignant neoplasm; I10 Essential (primary) hypertension | CPT/HCPCS: 80053; 83690 ==

== ENCOUNTER 2022-05-20 06:00 | Outpatient (RCR) | payer MEDICARE, SELFPAY | END 2022-06-19 23:59 | disposition home or self-care (01) | LOC: SPT 06:00 | PROVIDERS: PCP Family Medicine; Referring Provider Specialist; Visit Provider Specialist | DX: M19.012 Primary osteoarthritis, left shoulder (principal) | CPT/HCPCS: 97110 ==

== ENCOUNTER → 2022-10-25 10:57 | Outpatient (BNVA) | payer MEDICARE, SELFPAY | PROVIDERS: PCP Family Medicine; Visit Provider Internal Medicine Cardiovascular Disease | DX: I25.810 Atherosclerosis of coronary artery bypass graft(s) without angina pectoris (principal); Z95.0 Presence of cardiac pacemaker; E11.65 Type 2 diabetes mellitus with hyperglycemia; Z79.4 Long term (current) use of insulin; C85.80 Other specified types of non-Hodgkin lymphoma, unspecified site; G56.92 Unspecified mononeuropathy of left upper limb; G89.29 Other chronic pain; Z91.14 Patient's other noncompliance with medication regimen; Z95.1 Presence of aortocoronary bypass graft; Z87.891 Personal history of nicotine dependence; I11.0 Hypertensive heart disease with heart failure; I50.9 Heart failure, unspecified | CPT/HCPCS: 99214 ==

== ENCOUNTER → 2022-10-27 10:57 | Outpatient (BNVA) | payer MEDICARE, SELFPAY | PROVIDERS: PCP Family Medicine; Visit Provider Internal Medicine Cardiovascular Disease | DX: Z95.0 Presence of cardiac pacemaker (principal); I11.0 Hypertensive heart disease with heart failure; I50.9 Heart failure, unspecified; I25.10 Atherosclerotic heart disease of native coronary artery without angina pectoris; Z95.1 Presence of aortocoronary bypass graft; C85.80 Other specified types of non-Hodgkin lymphoma, unspecified site; E11.65 Type 2 diabetes mellitus with hyperglycemia; Z79.4 Long term (current) use of insulin; R94.31 Abnormal electrocardiogram [ECG] [EKG] | CPT/HCPCS: 93005; 99215 ==

== ENCOUNTER 2022-10-31 11:48 | Outpatient (CLI) | payer MEDICARE, SELFPAY ==
[2022-10-31 12:38] LABS: Basophils # 0.1 10^3/uL (0.0-0.1); Basophils % 0.9 %; Eosinophils # 0.2 10^3/uL (0.0-0.8); Eosinophils % 2.3 %; Hematocrit 48.6 % (37.0-47.0); Hemoglobin 15.8 g/dL (11.5-15.3); Lymphocytes # 1.5 10^3/uL (0.8-4.8); Lymphocytes % 18.8 %; Mean Corpuscular HGB Conc 32.5 g/dL (30.0-36.0); Mean Corpuscular Hemoglobin 32.6 pg (28.0-34.0); Mean Corpuscular Volume 100.4 fl (81-99); Mean Platelet Volume 10.4 fL (7.4-10.4); Monocytes # 0.5 10^3/uL (0.2-0.9); Monocytes % 6.8 %; Neutrophils # 5.51 10^3/uL (1.8-7.7); Neutrophils % 70.8 %; Nucleated Red Blood Cells % 0 %; Platelet Count 207 10^3/cmm (130-400); Red Blood Count 4.84 10^6/uL (4.1-5.3); Red Cell Distribution Width 12.7 % (12.1-15.1); White Blood Count 7.8 10^3/uL (4.0-10.0)
[2022-10-31 12:50] LABS: INR 0.97 (0.83-1.21); Prothrombin Time (Patient) 13.2 Seconds (12.0-15.1)
[2022-10-31 12:57] LABS: Anion Gap 12.9 (5-19); Blood Urea Nitrogen 13 mg/dL (8-23); Carbon Dioxide 29 mmol/L (22-29); Chloride 100 mmol/L (98-107); Glucose 139 mg/dL (65-115); Osmolality Calculated 288 mOsm/kg (285-295); Potassium 3.9 mmol/L (3.5-5.1); Sodium 138 mmol/L (136-145)
[2022-11-01 16:07] LABS: Alanine Aminotransferase 16 U/L (0-33); Albumin Level 3.4 g/dL (3.5-5.2); Alkaline Phosphatase 82 U/L (35-105); Aspartate Amino Transferase 24 U/L (0-32); Globulin 3.4 g/dL (1.3-4.6); Lactate Dehydrogenase 337 U/L (135-214); Total Bilirubin 0.5 mg/dL (0.15-1.2); Total Protein 6.8 g/dL (6.6-8.7)
== END 2022-10-31 11:49 | disposition home or self-care (01) ==
LOC: LAB 11:54
PROVIDERS: Internal Medicine Medical Oncology; PCP Family Medicine; Visit Provider Internal Medicine Cardiovascular Disease
DX: C85.80 Other specified types of non-Hodgkin lymphoma, unspecified site (principal); I25.10 Atherosclerotic heart disease of native coronary artery without angina pectoris; I50.9 Heart failure, unspecified; R07.9 Chest pain, unspecified; Z95.0 Presence of cardiac pacemaker; E11.65 Type 2 diabetes mellitus with hyperglycemia; Z79.4 Long term (current) use of insulin
CPT/HCPCS: 36415; 80048; 80076; 83615; 85025; 85610; 86850; 86900

== ENCOUNTER 2022-11-01 14:27 | Oncology outpatient (recurring) (ONCR) | payer MEDICARE, SELFPAY | END 2022-11-19 23:59 | disposition home or self-care (01) | PROVIDERS: PCP Family Medicine; Visit Provider Internal Medicine Medical Oncology | DX: C82.28 Follicular lymphoma grade III, unspecified, lymph nodes of multiple sites (principal); Z95.0 Presence of cardiac pacemaker | CPT/HCPCS: 99213; 99214 ==

== ENCOUNTER 2022-12-02 14:15 | Outpatient (CLI) | payer MEDICARE, SELFPAY ==
--- NOTE | 2022-12-02 14:30 | USCV_ITS ---
[place], [place] Age: 77 Gender: F : 1945 Exam Date: 12/02/2022 14:50 Ordering Phys: Emanuel Garnett MD ([email or web address]) Technologist: MENDEZ [place] [facility] [place]: AORTIC STENOSIS, EDEMA BP: 152 / 83 HR: 62 Rhythm: Other Technical Quality: Adequate MEASUREMENTS (Male / Female) Normal Values 2D ECHO LVOT Diameter 2.0 cm LV Ejection Fraction MOD 2C 60.3 % LV Ejection Fraction 2C AL 59.6 % LA Diameter 4.2 cm LA Width 3.4 cm LA Height 5.0 cm RA Width 3.7 cm RA Height 4.2 cm Aorta at Sinotubular Diameter 2.4 cm IVC Diameter 2.0 cm M-MODE Aortic Annulus Diameter 2.0 cm LA Ao Ratio MM 2.0 MV E Point Septal Separation 0.5 cm DOPPLER AV Peak Velocity 213.0 cm/s LVOT Peak Velocity 85.0 cm/s AV Area Cont Eq vti 1.6 cm squared AV Area Cont Eq pk 1.2 cm squared MV Peak Velocity 111.0 cm/s MV Area PHT 5.0 cm squared Mitral E to A Ratio 1.6 MV E' Velocity 57.0 cm/s Mitral E to MV E' Ratio 16.7 Mitral E to LV E' Lateral Ratio 15.9 Mitral E to LV E' Septal Ratio 17.5 TR Peak Velocity 345.6 cm/s TR Peak Gradient 47.8 mmHg TR Mean Velocity 260.9 cm/s TR Mean Gradient 29.9 mmHg TR Velocity Time Integral 130.4 cm TV Peak E Velocity 29.0 cm/s Right Atrial Pressure 3.0 mmHg Pulmonary Artery Systolic Pressu 50.8 mmHg PV Peak Velocity 100.0 cm/s RV Acceleration Time 0.1 s RV Ejection Time 0.4 s RV AcT/ET 0.3 FINDINGS Left Ventricle Normal left ventricular cavity size. Normal left ventricular wall thickness. No obvious wall motion disturbances. Lower limit of normal left ventricular function. Ejection fraction 50%. Grade 2 diastolic dysfunction. Right Ventricle Normal right ventricular size and systolic function. Moderate pulmonary hypertension, RVSP 50.8 mmHg. Catheter/pacemaker wire in the right ventricular cavity. Right Atrium Moderately increased right atrial size. Left Atrium Moderately increased left atrial size. Mitral Valve Structurally normal mitral valve. No mitral valve stenosis. Mild mitral valve regurgitation. Aortic Valve Structurally normal trileaflet aortic valve. Mild aortic valve calcification. Mild aortic valve stenosis, mean gradient 9.3 mmHg, SHERRON 1.6 cm squared. No aortic valve regurgitation. Tricuspid Valve Structurally normal tricuspid valve. Mild tricuspid valve regurgitation. Pulmonic Valve Pulmonic valve not well visualized. Mild pulmonary valve regurgitation. Pericardium Normal pericardium without effusion. Aorta Normal ascending aorta dimension. IVC The inferior vena cava appears normal. CONCLUSIONS Normal left ventricular cavity size. Normal left ventricular wall thickness. No obvious wall motion disturbances. Lower limit of normal left ventricular function. Ejection fraction 50%. Grade 2 diastolic dysfunction. Normal right ventricular size and systolic function. Moderate pulmonary hypertension, RVSP 50.8 mmHg. Catheter/pacemaker wire in the right ventricular cavity. Moderately increased right atrial size. Moderately increased left atrial size. Structurally normal mitral valve. No mitral valve stenosis. Mild mitral valve regurgitation. Structurally normal trileaflet aortic valve. Mild aortic valve calcification. Mild aortic valve stenosis, mean gradient 9.3 mmHg, SHERRON 1.6 cm squared. No aortic valve regurgitation. When compared to the previous study from 11/03/2020, there has been no significant change. Dr. Emanuel Garnett MD (Electronically Signed) Final Date: 03 December 2022 08:46 S
== END 2022-12-02 14:16 | disposition home or self-care (01) ==
LOC: RAD 14:19
PROVIDERS: PCP Family Medicine; Visit Provider Internal Medicine Cardiovascular Disease
DX: I25.10 Atherosclerotic heart disease of native coronary artery without angina pectoris (principal); I10 Essential (primary) hypertension; I50.9 Heart failure, unspecified; I35.0 Nonrheumatic aortic (valve) stenosis; I34.0 Nonrheumatic mitral (valve) insufficiency; Z95.0 Presence of cardiac pacemaker
CPT/HCPCS: 93306; 99215

== ENCOUNTER → 2022-12-13 14:00 | Outpatient (BNVA) | payer MEDICARE, SELFPAY | PROVIDERS: PCP Family Medicine; Visit Provider Thoracic Surgery (Cardiothoracic Vascular Surgery) | DX: T82.198A Other mechanical complication of other cardiac electronic device, initial encounter (principal); Y82.8 Other medical devices associated with adverse incidents | CPT/HCPCS: 99203 ==

== ENCOUNTER → 2023-01-03 10:31 | Outpatient (BNVA) | payer MEDICARE, SELFPAY | PROVIDERS: PCP Family Medicine; Visit Provider Registered Nurse | DX: E11.65 Type 2 diabetes mellitus with hyperglycemia (principal); Z79.4 Long term (current) use of insulin; L82.1 Other seborrheic keratosis; Z76.89 Persons encountering health services in other specified circumstances | CPT/HCPCS: 80053; 83036 ==

== ENCOUNTER → 2023-02-09 10:09 | Outpatient (BNVA) | payer MEDICARE, SELFPAY | PROVIDERS: PCP Registered Nurse; Visit Provider Nurse Practitioner Family | DX: Z95.0 Presence of cardiac pacemaker (principal) | CPT/HCPCS: 93288; 99213 ==

== ENCOUNTER 2023-02-24 10:01 | Oncology outpatient (recurring) (ONCR) | payer MEDICARE, SELFPAY ==
[2023-02-24 10:46] LABS: Basophils # 0.1 10^3/uL (0.0-0.1); Basophils % 1.1 %; Eosinophils # 0.3 10^3/uL (0.0-0.8); Eosinophils % 3.4 %; Hematocrit 41.1 % (37.0-47.0); Hemoglobin 13.5 g/dL (11.5-15.3); Lymphocytes % 26.8 %; Mean Corpuscular HGB Conc 32.8 g/dL (30.0-36.0); Mean Corpuscular Hemoglobin 32.6 pg (28.0-34.0); Mean Corpuscular Volume 99.3 fl (81-99); Mean Platelet Volume 9.9 fL (7.4-10.4); Monocytes # 0.5 10^3/uL (0.2-0.9); Neutrophils # 4.53 10^3/uL (1.8-7.7); Neutrophils % 61.4 %; Nucleated Red Blood Cells % 0 %; Platelet Count 222 10^3/cmm (130-400); Red Blood Count 4.14 10^6/uL (4.1-5.3); Red Cell Distribution Width 12.2 % (12.1-15.1); White Blood Count 7.4 10^3/uL (4.0-10.0)
[2023-02-24 11:03] LABS: Alanine Aminotransferase 13 U/L (0-33); Alkaline Phosphatase 63 U/L (35-105); Anion Gap 13.1 (5-19); Aspartate Amino Transferase 16 U/L (0-32); Blood Urea Nitrogen 18 mg/dL (8-23); Calcium 9.9 mg/dL (8.5-10.5); Carbon Dioxide 28 mmol/L (22-29); Chloride 102 mmol/L (98-107); Globulin 2.9 g/dL (1.3-4.6); Glucose 153 mg/dL (65-115); Lactate Dehydrogenase 207 U/L (135-214); Osmolality Calculated 293 mOsm/kg (285-295); Potassium 4.1 mmol/L (3.5-5.1); Sodium 139 mmol/L (136-145); Total Bilirubin 0.4 mg/dL (0.15-1.2); Total Protein 6.9 g/dL (6.6-8.7)
== END 2023-03-19 23:59 | disposition home or self-care (01) ==
PROVIDERS: PCP Registered Nurse; Visit Provider Internal Medicine Medical Oncology
DX: C82.28 Follicular lymphoma grade III, unspecified, lymph nodes of multiple sites (principal); Z95.0 Presence of cardiac pacemaker
CPT/HCPCS: 36415; 80053; 83615; 85025; 99213

== ENCOUNTER → 2023-06-29 09:52 | Outpatient (BNVA) | payer MEDICARE, SELFPAY | PROVIDERS: PCP Registered Nurse; Visit Provider Internal Medicine | DX: Z45.010 Encounter for checking and testing of cardiac pacemaker pulse generator [battery] (principal) | CPT/HCPCS: 93296 ==

== ENCOUNTER → 2023-06-29 13:39 | Outpatient (BNVA) | payer MEDICARE, SELFPAY | PROVIDERS: PCP Registered Nurse; Visit Provider Dermatology | DX: L30.0 Nummular dermatitis (principal); L57.8 Other skin changes due to chronic exposure to nonionizing radiation; L82.1 Other seborrheic keratosis; L85.3 Xerosis cutis; L81.4 Other melanin hyperpigmentation; F42.4 Excoriation (skin-picking) disorder; Z08 Encounter for follow-up examination after completed treatment for malignant neoplasm; Z85.828 Personal history of other malignant neoplasm of skin; L82.0 Inflamed seborrheic keratosis; L29.8 Other pruritus; L53.8 Other specified erythematous conditions; L57.0 Actinic keratosis | CPT/HCPCS: 17000; 17003; 17110; 99214 ==

== ENCOUNTER 2023-08-28 11:21 | Oncology outpatient (recurring) (ONCR) | payer MEDICARE, SELFPAY ==
[2023-08-28 11:33] VITALS: PULSE 60; RESP 16; TEMP 36.1; O2SAT 94
== END 2023-09-19 23:59 | disposition home or self-care (01) ==
PROVIDERS: PCP Registered Nurse; Visit Provider Internal Medicine Medical Oncology
DX: C82.28 Follicular lymphoma grade III, unspecified, lymph nodes of multiple sites (principal); Z95.0 Presence of cardiac pacemaker; Z79.899 Other long term (current) drug therapy
CPT/HCPCS: 36415; 80053; 83615; 85025; 99213

== ENCOUNTER → 2023-09-13 14:19 | Outpatient (BNVA) | payer MEDICARE, SELFPAY | PROVIDERS: PCP Registered Nurse; Visit Provider Internal Medicine | DX: Z95.0 Presence of cardiac pacemaker (principal); G56.92 Unspecified mononeuropathy of left upper limb; G89.29 Other chronic pain; I25.810 Atherosclerosis of coronary artery bypass graft(s) without angina pectoris; C85.80 Other specified types of non-Hodgkin lymphoma, unspecified site; E11.65 Type 2 diabetes mellitus with hyperglycemia; Z79.4 Long term (current) use of insulin; I10 Essential (primary) hypertension; Z95.1 Presence of aortocoronary bypass graft | CPT/HCPCS: 99214 ==

== ENCOUNTER → 2023-12-06 11:40 | Outpatient (BNVA) | payer MEDICARE, SELFPAY | PROVIDERS: PCP Registered Nurse; Visit Provider Registered Nurse | DX: E11.65 Type 2 diabetes mellitus with hyperglycemia (principal); Z79.4 Long term (current) use of insulin | CPT/HCPCS: 80053; 81003; 82043; 83036; 85025 ==

== ENCOUNTER → 2023-12-22 09:25 | Outpatient (BNVA) | payer MEDICARE, SELFPAY | PROVIDERS: PCP Registered Nurse; Visit Provider Nurse Practitioner Family | DX: Z85.828 Personal history of other malignant neoplasm of skin (principal); L82.0 Inflamed seborrheic keratosis; L57.0 Actinic keratosis; L57.8 Other skin changes due to chronic exposure to nonionizing radiation; L81.4 Other melanin hyperpigmentation | CPT/HCPCS: 17000; 17110; 99213 ==

== ENCOUNTER → 2024-01-03 16:16 | Outpatient (BNVA) | payer MEDICARE, SELFPAY | PROVIDERS: PCP Registered Nurse; Visit Provider Internal Medicine | DX: Z45.010 Encounter for checking and testing of cardiac pacemaker pulse generator [battery] (principal) | CPT/HCPCS: 93296 ==

== ENCOUNTER 2024-02-29 12:15 | Oncology outpatient (recurring) (ONCR) | payer MEDICARE, SELFPAY ==
[2024-02-29 12:38] LABS: Basophils # 0.1 10^3/uL (0.0-0.1); Basophils % 0.3 %; Eosinophils # 0.1 10^3/uL (0.0-0.8); Eosinophils % 0.3 %; Hematocrit 39.2 % (36-47); Lymphocytes # 2.3 10^3/uL (0.8-4.8); Lymphocytes % 15.9 %; Mean Corpuscular HGB Conc 33.7 g/dL (30-55); Mean Corpuscular Hemoglobin 32.8 pg (27-33); Mean Corpuscular Volume 97.3 fl (85-98); Mean Platelet Volume 10.6 fL (7.4-10.4); Monocytes # 1.1 10^3/uL (0.2-0.9); Monocytes % 7.5 %; Neutrophils # 10.95 10^3/uL (1.8-7.7); Neutrophils % 75.5 %; Nucleated Red Blood Cells % 0 %; Platelet Count 189 10^3/cmm (157-399); Red Blood Count 4.03 10^6/uL (3.85-5.65); Red Cell Distribution Width 11.9 % (12.1-15.1); White Blood Count 14.51 10^3/uL (3.29-11.43)
[2024-02-29 12:54] LABS: Alanine Aminotransferase 27 U/L (0-33); Albumin Level 3.6 g/dL (3.5-5.2); Alkaline Phosphatase 53 U/L (35-105); Anion Gap 15.6 (5-19); Aspartate Amino Transferase 65 U/L (0-32); Blood Urea Nitrogen 39 mg/dL (8-23); Calcium 9.7 mg/dL (8.5-10.5); Carbon Dioxide 24 mmol/L (22-29); Chloride 102 mmol/L (98-107); Globulin 3.4 g/dL (1.3-4.6); Glucose 288 mg/dL (65-115); Osmolality Calculated 304 mOsm/kg (285-295); Potassium 4.6 mmol/L (3.5-5.1); Sodium 137 mmol/L (136-145); Total Bilirubin 0.6 mg/dL (0.15-1.2)
== END 2024-03-19 23:59 | disposition home or self-care (01) ==
PROVIDERS: Nurse Practitioner Family; PCP Registered Nurse; Visit Provider Internal Medicine Medical Oncology
DX: C82.98 Follicular lymphoma, unspecified, lymph nodes of multiple sites (principal); Z79.899 Other long term (current) drug therapy
CPT/HCPCS: 36415; 76770; 80053; 85025; 99214

== ENCOUNTER → 2024-03-13 09:40 | Outpatient (BNVA) | payer MEDICARE, SELFPAY | PROVIDERS: PCP Registered Nurse; Visit Provider Nurse Practitioner Family | DX: I11.0 Hypertensive heart disease with heart failure (principal); I50.42 Chronic combined systolic (congestive) and diastolic (congestive) heart failure; Z95.0 Presence of cardiac pacemaker; I25.810 Atherosclerosis of coronary artery bypass graft(s) without angina pectoris | CPT/HCPCS: 99214 ==

== ENCOUNTER 2024-03-26 13:39 | Outpatient (CLI) | payer MEDICARE, SELFPAY ==
--- NOTE | 2024-03-26 14:00 | PETR_ITS ---
PROCEDURE INFORMATION: Exam: PET/CT Skull Base to Mid-thigh Exam date and time: 03/26/2024 1:57 PM Age: 78 years old Clinical indication: Condition or disease; Primary cancer: Follicular lymphoma; Prior surgery; Surgery date: 6+ months; Surgery type: Ovary; Additional info: [employer] LABS AND CLINICAL REPORTS: Glucose: 112 mg/dl Treatment strategy for malignancy (PET staging): Restaging (PS) TECHNIQUE: Imaging protocol: Following at least four-hour fasting and following the injection of radiopharmaceutical, low dose CT images were obtained. Then, PET images were obtained. Attenuation corrected images were constructed using the CT scan. Fused images of PET and CT were reviewed. The standardized uptake values (SUV) reported below are maximum values within a region of interest, expressed in gm/ml. Exam includes orbital meatal line to mid-thigh. Radiopharmaceutical: 11.4 mCi F-18 FDG (Fluorodeoxyglucose), IV. Time of imaging post radiopharmaceutical administration: 1 hour Injection site: Right antecubital COMPARISON: 1. CT abdomen pelvis w con* [id number] 05/05/2022 10:47 AM 2. PT PET Scan 11/28/2020 8:19 AM FINDINGS: Tubes, catheters and devices: Multilead cardiac pacemaker with left chest generator. Brain: Visualized brain has normal physiologic uptake. Pharynx: No abnormal uptake. Larynx: No abnormal uptake. Lungs, pleura and trachea: No abnormal uptake. Bilateral subsegmental atelectasis and/or scarring. Heart: Normal physiologic uptake. Coronary arteries: Moderate coronary artery calcification. Mediastinal space: No abnormal uptake. Diaphragm: Small hiatal hernia. Liver: No abnormal uptake. Gallbladder and bile ducts: No abnormal uptake. Pancreas: No abnormal uptake. Spleen: No abnormal uptake. Adrenal glands: No abnormal uptake. Kidneys and ureters: Normal physiologic uptake. Stomach and bowel: No abnormal uptake. Vasculature: No abnormal uptake. Mild systemic atherosclerotic calcification without aortic aneurysm. Lymph nodes: Newly enlarged right supraclavicular lymph node measures 1.5 cm in the short axis on axial image 44 of series 3 and shows SUV max of 2.9. Decreased size of left obturator lymph node measuring 1.8 cm in the short axis, previously 2.2 cm, now showing SUV max 3.0, previously 6.9. Bones/joints: No abnormal uptake in the visualized axial and appendicular skeleton. No acute fracture. No aggressive osteolytic or blastic lesion. Degenerative change along the imaged axial skeletal system and shoulders. Stable nonaggressive right proximal humerus chondroid lesion compatible with enchondroma. Prior median sternotomy. Soft tissues: No abnormal uptake in the visualized head, neck, chest, abdomen, pelvis, and extremities. Small fat containing umbilical and infraumbilical hernias. Mild FDG uptake at the left gluteus medius muscle, adjacent to the right greater trochanter, and asymmetrically at the left semitendinosis muscle without underlying CT abnormality is likely inflammatory. METRICS: Mediastinal blood pool: SUV 4.0. Liver uptake: SUV 4.4. PET/PET [facility] SUBSEQ [id number] IMPRESSION: 1. Compared to 202, newly enlarged right supraclavicular lymph node with low-level FDG uptake. Although this could represent new site of lymphoma (Deauville 5), it would be the only site of new/worsening disease and other neoplastic and non-neoplastic etiologies should be considered. Consider histopathologic correlation. 2. Compared to prior exams, decreased size and metabolic activity of left obturator lymph node with FDG uptake now less than mediastinal background. If abnormal right supraclavicular lymph node is found to be related to separate process, then overall exam would indicate Deauville 2 complete response. 3. Additional chronic and incidental findings as above.
== END 2024-03-26 13:40 | disposition home or self-care (01) ==
LOC: RAD 13:40
PROVIDERS: PCP Registered Nurse; Visit Provider Nurse Practitioner Family
DX: C82.98 Follicular lymphoma, unspecified, lymph nodes of multiple sites (principal)
CPT/HCPCS: 78815; A9552

== ENCOUNTER → 2024-05-28 13:25 | Outpatient (BNVA) | payer MEDICARE, SELFPAY | PROVIDERS: PCP Registered Nurse; Visit Provider Registered Nurse | DX: E11.9 Type 2 diabetes mellitus without complications (principal) | CPT/HCPCS: 83036 ==

== ENCOUNTER → 2024-07-02 13:08 | Outpatient (BNVA) | payer OTHER, SELFPAY | PROVIDERS: PCP Registered Nurse; Visit Provider Nurse Practitioner Family | DX: L82.0 Inflamed seborrheic keratosis (principal); L82.1 Other seborrheic keratosis; L85.3 Xerosis cutis; L81.4 Other melanin hyperpigmentation; L57.0 Actinic keratosis; S80.862A Insect bite (nonvenomous), left lower leg, initial encounter; S80.861A Insect bite (nonvenomous), right lower leg, initial encounter; S20.461A Insect bite (nonvenomous) of right back wall of thorax, initial encounter; X58.XXXA Exposure to other specified factors, initial encounter | CPT/HCPCS: 17000; 17110; 99214 ==

== ENCOUNTER 2024-07-11 11:11 | Oncology outpatient (recurring) (ONCR) | payer OTHER, SELFPAY ==
[2024-07-11 11:43] LABS: Basophils # 0.1 10^3/uL (0.0-0.1); Basophils % 1.3 %; Eosinophils # 0.3 10^3/uL (0.0-0.8); Eosinophils % 3.7 %; Hematocrit 40.5 % (36-47); Lymphocytes % 28.6 %; Mean Corpuscular HGB Conc 33.6 g/dL (30-55); Mean Corpuscular Hemoglobin 32.8 pg (27-33); Mean Corpuscular Volume 97.6 fl (85-98); Mean Platelet Volume 9.8 fL (7.4-10.4); Monocytes # 0.4 10^3/uL (0.2-0.9); Monocytes % 5.5 %; Neutrophils # 4.26 10^3/uL (1.8-7.7); Neutrophils % 60.6 %; Nucleated Red Blood Cells % 0 %; Platelet Count 202 10^3/cmm (157-399); Red Blood Count 4.15 10^6/uL (3.85-5.65); Red Cell Distribution Width 12.3 % (12.1-15.1); White Blood Count 7.03 10^3/uL (3.29-11.43)
[2024-07-11 12:07] LABS: Alanine Aminotransferase 15 U/L (0-33); Albumin Level 4.1 g/dL (3.5-5.2); Alkaline Phosphatase 62 U/L (35-105); Anion Gap 15.6 (5-19); Aspartate Amino Transferase 16 U/L (0-32); Blood Urea Nitrogen 23 mg/dL (8-23); Calcium 9.9 mg/dL (8.5-10.5); Carbon Dioxide 26 mmol/L (22-29); Chloride 103 mmol/L (98-107); Globulin 2.9 g/dL (1.3-4.6); Glucose 215 mg/dL (65-115); Osmolality Calculated 300 mOsm/kg (285-295); Potassium 4.6 mmol/L (3.5-5.1); Sodium 140 mmol/L (136-145); Total Bilirubin 0.4 mg/dL (0.15-1.2)
== END 2024-07-20 23:55 | disposition home or self-care (01) ==
PROVIDERS: Nurse Practitioner Family; PCP Registered Nurse; Visit Provider Internal Medicine Medical Oncology
DX: C82.28 Follicular lymphoma grade III, unspecified, lymph nodes of multiple sites (principal); K92.1 Melena
CPT/HCPCS: 36415; 80053; 85025; 99214

== ENCOUNTER → 2024-08-22 10:56 | Outpatient (BNVA) | payer OTHER, SELFPAY | PROVIDERS: PCP Registered Nurse; Visit Provider Internal Medicine Cardiovascular Disease | DX: Z45.018 Encounter for adjustment and management of other part of cardiac pacemaker (principal) | CPT/HCPCS: 93296 ==

== ENCOUNTER → 2024-08-30 09:03 | Outpatient (BNVA) | payer OTHER, SELFPAY | PROVIDERS: PCP Registered Nurse; Visit Provider Nurse Practitioner Family | DX: Z95.0 Presence of cardiac pacemaker (principal); I11.0 Hypertensive heart disease with heart failure; I50.42 Chronic combined systolic (congestive) and diastolic (congestive) heart failure; I25.810 Atherosclerosis of coronary artery bypass graft(s) without angina pectoris; I35.0 Nonrheumatic aortic (valve) stenosis | CPT/HCPCS: 99214 ==

== ENCOUNTER 2024-10-10 12:16 | Oncology outpatient (recurring) (ONCR) | payer OTHER, SELFPAY ==
[2024-10-10 12:34] LABS: Basophils # 0.1 10^3/uL (0.0-0.1); Eosinophils # 0.2 10^3/uL (0.0-0.8); Hematocrit 41.9 % (36-47); Lymphocytes # 2.5 10^3/uL (0.8-4.8); Lymphocytes % 29.9 %; Mean Corpuscular HGB Conc 32.7 g/dL (30-55); Mean Corpuscular Hemoglobin 31.4 pg (27-33); Mean Corpuscular Volume 96.1 fl (85-98); Mean Platelet Volume 10.2 fL (7.4-10.4); Monocytes # 0.5 10^3/uL (0.2-0.9); Neutrophils # 5.09 10^3/uL (1.8-7.7); Neutrophils % 60.9 %; Nucleated Red Blood Cells % 0 %; Platelet Count 218 10^3/cmm (157-399); Red Blood Count 4.36 10^6/uL (3.85-5.65); Red Cell Distribution Width 11.9 % (12.1-15.1); White Blood Count 8.36 10^3/uL (3.29-11.43)
[2024-10-10 12:52] LABS: Alanine Aminotransferase 13 U/L (0-33); Albumin Level 4.3 g/dL (3.5-5.2); Alkaline Phosphatase 62 U/L (35-105); Anion Gap 11.6 (5-19); Aspartate Amino Transferase 18 U/L (0-32); Blood Urea Nitrogen 37 mg/dL (8-23); Calcium 10.4 mg/dL (8.5-10.5); Carbon Dioxide 28 mmol/L (22-29); Chloride 103 mmol/L (98-107); Globulin 3.1 g/dL (1.3-4.6); Glucose 127 mg/dL (65-115); Lactate Dehydrogenase 251 U/L (135-214); Osmolality Calculated 296 mOsm/kg (285-295); Potassium 4.6 mmol/L (3.5-5.1); Sodium 138 mmol/L (136-145); Total Bilirubin 0.4 mg/dL (0.15-1.2); Total Protein 7.4 g/dL (6.6-8.7)
== END 2024-10-19 23:59 | disposition home or self-care (01) ==
PROVIDERS: Nurse Practitioner Family; PCP Registered Nurse; Visit Provider Internal Medicine Hematology & Oncology
DX: C82.28 Follicular lymphoma grade III, unspecified, lymph nodes of multiple sites (principal); K92.1 Melena; Z95.0 Presence of cardiac pacemaker; Z79.899 Other long term (current) drug therapy
CPT/HCPCS: 36415; 80053; 83615; 85025; 99214

== ENCOUNTER → 2024-12-23 10:24 | Outpatient (BNVA) | payer OTHER, SELFPAY | PROVIDERS: PCP Registered Nurse; Visit Provider Nurse Practitioner Family | DX: L57.8 Other skin changes due to chronic exposure to nonionizing radiation (principal); L82.1 Other seborrheic keratosis; L85.3 Xerosis cutis; L81.4 Other melanin hyperpigmentation; Z08 Encounter for follow-up examination after completed treatment for malignant neoplasm; Z85.828 Personal history of other malignant neoplasm of skin; L82.0 Inflamed seborrheic keratosis; R20.8 Other disturbances of skin sensation; L29.89 Other pruritus; L53.8 Other specified erythematous conditions; L57.0 Actinic keratosis | CPT/HCPCS: 17000; 17110; 99213 ==

== ENCOUNTER 2025-01-21 11:26 | Emergency (ER) | payer OTHER, SELFPAY ==
--- NOTE | 2025-01-21 11:28 | XR_ITS ---
WS: [id number] XR hip LT 2-3V wo/w pel* [id number] REASON FOR EXAM: hip pain FINDINGS: No fracture of the femoral head or neck. Proximal femur is normal. The superior and inferior pubic ramus are intact. The acetabulum is intact. There is moderate narrowing of the joint space with moderate subchondral sclerosis and mild osteophytosis of the acetabulum. There is mild osteophytosis of the femoral head. XR/XR hip LT 2-3V wo/w pel* [id number] IMPRESSION: No acute abnormality. Moderate osteoarthritis of the left hip.
[2025-01-21 11:34] VITALS: BP 159/87; PULSE 83; TEMP 36.9; O2SAT 94; BMI 39.2
--- NOTE | 2025-01-21 13:20 | CT_ITS ---
WS: [id number] CT LEFT HIP, NONCONTRAST HISTORY: Pain difficulty walking Technique: All CT scans at [facility] use at least one of these dose optimization techniques: automated exposure control; mA and/or kV adjustment per patient size (includes targeted exams where dose is matched to clinical indication); or iterative reconstruction. DLP: 487.01 mGy.cm COMPARISON: Radiograph 01/21/2025 Normal position of the femoral head and the acetabulum. No acetabular or femoral head fracture. Mild narrowing of the LEFT hip joint. There are a few tiny calcific or osseous densities within the joint space. Mild osteophytic ridging around the acetabulum. No soft tissue edema or hematoma. No joint effusion. No significant muscle atrophy surrounding the hip. Scattered vascular calcifications in the femoral artery. Atrophic uterus. Visualized urinary bladder is negative. CT/CT hip LT con* [id number] IMPRESSION: 1. Mild degenerative joint disease involving the LEFT hip. No fracture. 2. There are a few tiny calcific or osseous densities in the joint space which may be due to chondrocalcinosis.
--- NOTE | 2025-01-21 13:21 | W.ED.EXTPRO ---
HPI - Extremity Problem General: Chief complaint: Extremity Injury, Lower Stated complaint: L hip pain, heard popping sound Time Seen by Provider: 01/21/25 12:53 History of Present Illness: 79-year-old female presents to the emergency room with complaint of left hip pain. Yesterday she was moving her leg to take her slipper off felt a popping sensation had significant pain she has had difficulty standing and walking since then. She had a mobility denies slipping or falling and denies any other injury. Associated symptoms: Deny chest pain, fever(s) or rash Related Data Home Medications ?Medication ?Instructions ?Recorded ?Confirmed Cbd Gummy 1 gummy PO BEDTIME PRN sleep and 01/21/25 01/23/25 pain Cbd Gummy 1 gummy PO DAILY Emphysema 01/21/25 01/23/25 amlodipine 5 mg tablet 5 mg PO DAILY 01/21/25 01/23/25 dulaglutide 1.5 mg/0.5 mL 1.5 mg SUBCUT Q7D 01/21/25 01/23/25 subcutaneous pen injector ([facility]) losartan 100 mg tablet 100 mg PO DAILY 01/21/25 01/23/25 erufpcnbkvbw-nksxizdu-djkkt acid 1 cap PO DAILY 01/21/25 01/23/25 400 mcg-vitamin K 80 mcg capsule (Multi For Her 50 Plus) Previous Rx's ?Medication ?Instructions ?Recorded Wheel chair light weight K0003 #1 ea 02/12/21 pen needle, diabetic 33 gauge x #100 ea 03/07/21 5/32 insulin syringe-needle U-100 0.3 #100 ea 06/08/21 mL 31 gauge x 5/16 (BD Insulin Syringe Ultra-Fine) blood-glucose meter #1 ea 01/31/22 blood sugar diagnostic (True #150 strips 02/15/24 Metrix Glucose Test Strip) blood-glucose sensor (FreeStyle #2 ea 02/22/24 Devin 3 Sensor device) flash glucose scanning reader #1 ea 02/22/24 (FreeStyle Devin 2 [place]) flash glucose sensor (FreeStyle #2 ea 11/27/24 Devin 2 Sensor kit) semaglutide 1 mg/dose (4 mg/3 mL) 1 mg (0.75 mL) SUBCUT .weekly 90 11/28/24 subcutaneous pen injector (Ozempic) days #12 mL diclofenac sodium 75 mg 75 mg PO Q12H PRN pain #20 tabs 01/21/25 tablet,delayed release Allergies Allergy/AdvReac Type Severity Reaction Status Date / Time No Known Allergies Allergy Verified 01/23/25 13:09 Review of Systems Const: Denies: fever(s) or chills Card: Denies: chest pain Resp: Denies: dyspnea GI: Denies: abdominal pain : Denies: dysuria, urinary frequency or urinary urgency Musc: Denies: neck pain or back pain Skin/Breast: Denies: rash PFSH ED PFSH: Medical History Emphysema, unspecified DDD (degenerative disc disease), lumbar OA (osteoarthritis of spine) CAD (coronary artery disease) Chest pain Non-Hodgkin lymphoma 2014 Controlled type 2 diabetes mellitus with hyperglycemia, with long-term current use of insulin Conflicted attitude towards medication management Controlled type 2 diabetes mellitus with hyperglycemia, without long-term current use of insulin CHF (congestive heart failure) systolic and diastolic Essential (primary) hypertension Obesity Use of cane as ambulatory aid History of pacemaker 2nd Surgical History Presence of aortocoronary bypass graft History of carpal tunnel surgery right Ovary removal, prophylactic Family History Mother Bleeding disorder Cancer Diabetes Grandmother Cancer Diabetes Daughter Lung disease Father Stroke Other Hypertension Denies family history of CAD (coronary artery disease) Clotting disorder Dementia Chronic kidney disease (CKD) Suicide Anesthesia complication Social History Smoking and tobacco/nicotine status: never used tobacco/nicotine Second hand smoke exposure: No Alcohol intake: never Substance/Drug Use: current Substance/Drug use frequency: daily Other substance/drug use details: CBD Adopted: No Caregiver/support person: No Lives independently: Yes Household members: children Housing: House Marital status: / Number of children: 5 service: No Current occupational status: unemployed and retired Sexually active: No Do you think of yourself as: Straight/Heterosexual Current gender identity: Female Physical Exam Const: GENERAL APPEARANCE: cooperative ORIENTATION/CONSCIOUSNESS: Yes awake, Yes oriented to person, Yes oriented to place and Yes oriented to time HENMT: COMMON NORMALS: normocephalic, atraumatic and hearing grossly normal bilaterally HEAD & SCALP: normocephalic and atraumatic Resp: COMMON NORMALS: normal respiratory effort, No retractions, No use of accessory muscles and clear to auscultation bilaterally AUSCULTATION: clear to auscultation bilaterally Cardio: COMMON NORMALS: regular rate, regular rhythm and No murmurs present (Cardio) RATE: regular rate RHYTHM: regular rhythm GI: COMMON NORMALS: Soft to palpation and No hepatosplenomegaly present AUSCULTATION: Yes normoactive bowel sounds PALPATION: Yes Soft to palpation, No Tenderness to palpation present (GI), No Guarding due to palpation present (GI) and Yes No hepatosplenomegaly present Extremity: COMMON NORMALS: normal to inspection, capillary refill normal, no clubbing, cyanosis or edema, no calf tenderness and no pedal edema Neuro: SENSORIUM/ORIENTATION: Yes oriented to person, Yes oriented to place and Yes oriented to time Skin: COMMON NORMALS: no rashes or lesions noted GENERAL SKIN EXAM: no rashes or lesions noted Course Vital Signs: Vital signs: Vital Signs Temperature 98.4 F 01/21/25 11:34 Pulse Rate 75 01/21/25 15:08 Blood Pressure 151/100 01/21/25 15:08 Pulse Oximetry 97 01/21/25 15:08 Oxygen Delivery Me thod Room Air 01/21/25 11:34 MDM - Extremity (Nontraumatic) Medical Decision Making Imaging of the hip is negative CT done also there is no fracture noted on the the advanced imaging either patient was able to ambulate. Will discharge home suspect this more of osteoarthritic or soft tissue. She does have little mild tenderness over the greater trochanter I do not believe she has trochanteric bursitis at this point rather mild and does not seem to be the focus of her pain. As it was able to move her hips through full range of motion although she has limited internal and external rotation which exhibits some mild discomfort. Recommend ambulation aids patient states she has some at home use anti-inflammatories as needed follow-up as needed Lab Data Radiology Impressions Hip/Pelvis X-Ray 01/21/25 11:28 IMPRESSION: No acute abnormality. Moderate osteoarthritis of the left hip. Hip CT 01/21/25 13:20 IMPRESSION: 1. Mild degenerative joint disease involving the LEFT hip. No fracture. 2. There are a few tiny calcific or osseous densities in the joint space which may be due to chondrocalcinosis. All radiology interpretation(s) finalized by discharge Discharge Plan Discharge Patient Disposition: Home Clinical Impression: Acute pain of left hip Condition: Stable Prescriptions: New diclofenac sodium 75 mg tablet,delayed release (DR/EC) 75 mg PO Q12H PRN (Reason: pain) Qty: 20 0RF No Action (DME) Wheel chair light weight K0003 See Rx Instructions .Route .MEDSUPPLY Qty: 1 0RF Rx Instructions: use 99 months (DME) pen needle, diabetic 33 gauge x 5/32 needle See Rx Instructions .ROUTE .MEDSUPPLY Qty: 100 5RF Rx Instructions: 4 times day (DME) FreeStyle Devin 3 Sensor Device See Rx Instructions .MEDSUPPLY Qty: 2 12RF Rx Instructions: Change every 14 days; Use as directed to check blood sugar (DME) FreeStyle Devin 2 [place] Misc See Rx Instructions .MEDSUPPLY Qty: 1 0RF Rx Instructions: Use as directed to check blood sugar Ozempic 1 mg/dose (4 mg/3 mL) pen injector 1 mg SUBCUT .weekly 90 Days Qty: 12 0RF Rx Instructions: pt states trulicity too expensive (DME) insulin syringe-needle U-100 [BD Insulin Syringe Ultra-Fine] 0.3 mL 31 gauge x 5/16 syringe See Rx Instructions .Route Qty: 100 5RF Rx Instructions: use 3 times day with meals (DME) blood-glucose meter Misc See Rx Instructions .Route Qty: 1 0RF Rx Instructions: As directed (DME) True Metrix Glucose Test Strip Strip See Rx Instructions .ROUTE .COMPLEX Qty: 150 1RF Dose Instruction: TEST BLOOD SUGAR THREE TIMES DAILY Rx Instructions: TEST BLOOD SUGAR THREE TIMES DAILY [facility] [id number] DX CODE: E11.9 DATE AUTH: 02/15/2024 (DME) FreeStyle Devin 2 Sensor Kit See Rx Instructions .MEDSUPPLY Qty: 2 11RF Rx Instructions: Change every 14 days; Use as directed to check blood sugar Multi For Her 50 Plus 400-80 mcg Capsule 1 cap PO DAILY Trulicity 1.5 mg/0.5 mL pen injector 1.5 mg SUBCUT Q7D amlodipine 5 mg tablet 5 mg PO DAILY Rx Instructions: Take 1 tablet by mouth once daily losartan 100 mg tablet 100 mg PO DAILY Rx Instructions: Take 1 tablet by mouth once daily Cbd Gummy 1 gummy PO BEDTIME PRN (Reason: sleep and pain ) Cbd Gummy 1 gummy PO DAILY Discharge Orders: Discharge ED (Routine); Ordered 01/21/25 Ordered By: Gerhard Boucher Referrals: Dora Agarwal FNP [Primary Care Provider] - Discharge Diet: Usual diet Discharge Activity: Increase activity as tolerated Patient Instructions: Opioid Safety, Pain Management Activity Restrictions/Additional Instructions: Thank you for choosing [facility] for your healthcare needs today. It is very important that you follow up as instructed or that you return to the Emergency Department should you have concerns or if your condition changes or worsens in any way. You were seen in the emergency room with complaint of left hip pain. X-ray was negative. CT did not show any occult fracture. You do have significant amount of arthritis in the hip. This may be the cause of some of the discomfort that occurred after range of motion. You can use diclofenac as needed. If symptoms persist follow-up with your primary care doctor they can refer you to orthopedics as or physical therapy has felt appropriate. Print Language: Bulgarian Coding Level of Care Code ED Screen Printing Supervisor for Dolly Servin
--- NOTE | 2025-01-21 13:24 | PC.PHAR ---
Patient states she takes CBD Gummies . They are two different kinds, One is for emphysema and the other one is for pain or sleep.
[2025-01-21 15:00] VITALS: BP 151/100; PULSE 75; O2SAT 97
[2025-01-21 15:08] VITALS: BP 151/100; PULSE 75; O2SAT 97
== END 2025-01-21 15:10 | disposition home or self-care (01) ==
PROVIDERS: Emergency Provider Family Medicine; PCP Registered Nurse
DX: M25.552 Pain in left hip (principal); Z79.85 Long-term (current) use of injectable non-insulin antidiabetic drugs; I25.10 Atherosclerotic heart disease of native coronary artery without angina pectoris; I11.0 Hypertensive heart disease with heart failure; I50.30 Unspecified diastolic (congestive) heart failure; Z95.0 Presence of cardiac pacemaker
CPT/HCPCS: 73502; 73700; 99284

== ENCOUNTER 2025-02-06 11:28 | Oncology outpatient (recurring) (ONCR) | payer OTHER, SELFPAY ==
[2025-02-06 11:49] LABS: Basophils # 0.1 10^3/uL (0.0-0.1); Basophils % 0.9 %; Eosinophils # 0.3 10^3/uL (0.0-0.8); Eosinophils % 3.4 %; Hematocrit 41.5 % (36-47); Lymphocytes # 2.8 10^3/uL (0.8-4.8); Mean Corpuscular HGB Conc 32.8 g/dL (30-55); Mean Corpuscular Hemoglobin 31.5 pg (27-33); Mean Corpuscular Volume 96.1 fl (85-98); Mean Platelet Volume 9.6 fL (7.4-10.4); Monocytes # 0.5 10^3/uL (0.2-0.9); Monocytes % 5.9 %; Neutrophils % 58.5 %; Nucleated Red Blood Cells % 0 %; Platelet Count 236 10^3/cmm (157-399); Red Blood Count 4.32 10^6/uL (3.85-5.65); Red Cell Distribution Width 12.4 % (12.1-15.1); White Blood Count 8.88 10^3/uL (3.29-11.43)
[2025-02-06 12:08] LABS: Alanine Aminotransferase 20 U/L (0-33); Albumin Level 4.4 g/dL (3.5-5.2); Alkaline Phosphatase 63 U/L (35-105); Anion Gap 16.4 (5-19); Aspartate Amino Transferase 20 U/L (0-32); Blood Urea Nitrogen 18 mg/dL (8-23); Calcium 10.1 mg/dL (8.5-10.5); Carbon Dioxide 25 mmol/L (22-29); Chloride 104 mmol/L (98-107); Globulin 2.9 g/dL (1.3-4.6); Glucose 118 mg/dL (65-115); Lactate Dehydrogenase 166 U/L (135-214); Osmolality Calculated 295 mOsm/kg (285-295); Potassium 4.4 mmol/L (3.5-5.1); Sodium 141 mmol/L (136-145); Total Bilirubin 0.4 mg/dL (0.15-1.2); Total Protein 7.3 g/dL (6.6-8.7)
== END 2025-02-17 23:59 | disposition home or self-care (01) ==
PROVIDERS: Nurse Practitioner Family; PCP Registered Nurse; Visit Provider Internal Medicine Hematology & Oncology
DX: C82.28 Follicular lymphoma grade III, unspecified, lymph nodes of multiple sites (principal); R63.0 Anorexia; Z68.39 Body mass index [BMI] 39.0-39.9, adult; Z79.899 Other long term (current) drug therapy
CPT/HCPCS: 36415; 80053; 83615; 85025; 99213

== ENCOUNTER → 2025-03-10 13:38 | Outpatient (BNVA) | payer OTHER, SELFPAY | PROVIDERS: PCP Registered Nurse; Visit Provider Internal Medicine | DX: I25.810 Atherosclerosis of coronary artery bypass graft(s) without angina pectoris (principal); I10 Essential (primary) hypertension; E11.65 Type 2 diabetes mellitus with hyperglycemia; Z79.4 Long term (current) use of insulin; Z79.85 Long-term (current) use of injectable non-insulin antidiabetic drugs; G56.92 Unspecified mononeuropathy of left upper limb; G89.29 Other chronic pain; C85.80 Other specified types of non-Hodgkin lymphoma, unspecified site; Z79.82 Long term (current) use of aspirin; Z95.0 Presence of cardiac pacemaker; Z95.1 Presence of aortocoronary bypass graft; R07.9 Chest pain, unspecified; R06.02 Shortness of breath | CPT/HCPCS: 99214 ==

== ENCOUNTER 2025-05-01 12:45 | Oncology outpatient (recurring) (ONCR) | payer OTHER, SELFPAY ==
--- NOTE | 2025-04-25 08:30 | PETR_ITS ---
PROCEDURE INFORMATION: Exam: PET/CT Skull Base to Mid-thigh Exam date and time: 04/25/2025 9:11 AM Age: 79 years old Clinical indication: Symptoms: Follicular lymphoma dx 10 years ago. Self treatment with cbd and ivermectin since dx. Prior surgery; Surgery date: 6+ months; Surgery type: Pacemaker and ovarian; Additional info: Follicular lymphoma, Dr. Weaver would like this pn 04/25/25 LABS AND CLINICAL REPORTS: Glucose: 149 mg/dl Treatment strategy for malignancy (PET staging): Restaging (PS) TECHNIQUE: Imaging protocol: Following at least four-hour fasting and following the injection of radiopharmaceutical, low dose CT images were obtained. Then, PET images were obtained. Attenuation corrected images were constructed using the CT scan. Fused images of PET and CT were reviewed. The standardized uptake values (SUV) reported below are maximum values within a region of interest, expressed in gm/ml. Exam includes orbital meatal line to mid-thigh. SUV normalization method: BodyWeight Radiopharmaceutical: 10.6 mCi F-18 FDG (Fluorodeoxyglucose), IV. Time of imaging post radiopharmaceutical administration: 45 minutes Injection site: Right AC COMPARISON: 1. PT PET skull to thigh SUBS [id number] 03/26/2024 1:57 PM 2. PT PET Scan 11/28/2020 8:19 AM FINDINGS: Tubes, catheters and devices: Multilead cardiac pacemaker with left chest generator. Brain: Visualized brain has normal physiologic uptake. Pharynx: No abnormal uptake. Larynx: No abnormal uptake. Lungs, pleura and trachea: No abnormal uptake. Bilateral subsegmental atelectasis and/or scarring. Heart: Normal physiologic uptake. Coronary arteries: Moderate to heavy coronary artery calcification. Mediastinal space: No abnormal uptake. Diaphragm: Small hiatal hernia. Liver: No abnormal uptake. Gallbladder and biliary ducts: No abnormal uptake. Pancreas: No abnormal uptake. Spleen: No abnormal uptake. Adrenal glands: No abnormal uptake. Kidneys and ureters: Normal physiologic uptake. Stomach and bowel: No abnormal uptake. Vasculature: No abnormal uptake. Mild systemic atherosclerotic calcification without aortic aneurysm. Lymph nodes: Developed enlarged FDG avid left axillary lymph node measuring 9 mm in the short axis on axial image 105 showing SUV max 15.5. Continued decreased size and metabolic activity of left obturator lymph node measuring 1 cm in the short axis with SUV max 1.6, previously 1.8 cm with SUV max 3.0. Resolved right supraclavicular lymphadenopathy. Skeleton: No abnormal uptake in the visualized axial and appendicular skeleton. Degenerative changes along the imaged axial skeletal system and shoulders. Stable nonaggressive right proximal humerus chondroid lesion compatible with enchondroma. Prior median sternotomy. Soft tissues: Developed 2 subcentimeter FDG avid left outer breast nodules, 7 mm nodule on axial image 133 showing SUV max 2.4 and approximately 9 mm nodule on axial image 139 showing SUV max 4.9. Small fat containing umbilical and infraumbilical hernias. METRICS: Mediastinal blood pool: SUV mean 2.5 Liver uptake: SUV max 2.7 PET/PET skull to thigh SUBS [id number] IMPRESSION: 1. Resolved right supraclavicular and left obturator lymphadenopathy. 2. Developed 2 subcentimeter FDG avid left outer breast nodules and FDG avid left axillary lymphadenopathy. Although this could represent lymphomatous involvement, favor primary breast malignancy and metastatic lymphadenopathy. Recommend mammogram and breast ultrasound.
[2025-05-01 13:13] LABS: Basophils # 0.1 10^3/uL (0.0-0.1); Basophils % 0.9 %; Eosinophils # 0.4 10^3/uL (0.0-0.8); Eosinophils % 4.5 %; Lymphocytes # 1.8 10^3/uL (0.8-4.8); Lymphocytes % 22.1 %; Mean Corpuscular HGB Conc 32.9 g/dL (30-55); Mean Corpuscular Hemoglobin 31.7 pg (27-33); Mean Corpuscular Volume 96.2 fl (85-98); Mean Platelet Volume 9.9 fL (7.4-10.4); Monocytes # 0.5 10^3/uL (0.2-0.9); Monocytes % 6.1 %; Neutrophils # 5.38 10^3/uL (1.8-7.7); Neutrophils % 65.9 %; Nucleated Red Blood Cells % 0 %; Platelet Count 234 10^3/cmm (157-399); Red Blood Count 4.26 10^6/uL (3.85-5.65); Red Cell Distribution Width 12.3 % (12.1-15.1); White Blood Count 8.16 10^3/uL (3.29-11.43)
[2025-05-01 13:18] LABS: Erythrocyte Sedimentation Rate 17 mm/hr (0-15)
[2025-05-01 13:37] LABS: Alanine Aminotransferase 19 U/L (0-33); Albumin Level 3.8 g/dL (3.5-5.2); Alkaline Phosphatase 67 U/L (35-105); Anion Gap 17.8 (5-19); Aspartate Amino Transferase 22 U/L (0-32); Blood Urea Nitrogen 20 mg/dL (8-23); Calcium 9.5 mg/dL (8.5-10.5); Carbon Dioxide 25 mmol/L (22-29); Chloride 100 mmol/L (98-107); Globulin 3.1 g/dL (1.3-4.6); Glucose 186 mg/dL (65-115); Immunoglobulin IGA 197 mg/dL (70-400); Immunoglobulin IGG 995 mg/dL (700-1600); Immunoglobulin IGM 78 mg/dL (40-230); Lactate Dehydrogenase 169 U/L (135-214); Osmolality Calculated 293 mOsm/kg (285-295); Phosphorus 2.9 mg/dL (2.5-4.5); Potassium 4.8 mmol/L (3.5-5.1); Sodium 138 mmol/L (136-145); Total Bilirubin 0.3 mg/dL (0.15-1.2); Total Protein 6.9 g/dL (6.6-8.7); Uric Acid 6.1 mg/dL (2.4-5.7)
[2025-05-02 05:10] LABS: PROTEIN, TOTAL 6.6 g/dL (6.1-8.1)
[2025-05-02 06:35] LABS: Beta-2-Microglobulin 3.75 mg/L (< OR = 2.51)
[2025-05-02 20:30] LABS: ALBUMIN 3.9 g/dL (3.8-4.8); ALPHA 1 GLOBULIN 0.2 g/dL (0.2-0.3); ALPHA 2 GLOBULIN 0.8 g/dL (0.5-0.9); BETA 1 GLOBULIN 0.4 g/dL (0.4-0.6); BETA 2 GLOBULIN 0.3 g/dL (0.2-0.5); GAMMA GLOBULIN 0.9 g/dL (0.8-1.7)
[2025-05-04 13:00] LABS: Immunofixation Serum Normal pattern.
== END 2025-05-19 23:59 | disposition home or self-care (01) ==
PROVIDERS: PCP Registered Nurse; Visit Provider Internal Medicine
DX: Z53.9 Procedure and treatment not carried out, unspecified reason (principal); C82.98 Follicular lymphoma, unspecified, lymph nodes of multiple sites; R03.0 Elevated blood-pressure reading, without diagnosis of hypertension; N63.20 Unspecified lump in the left breast, unspecified quadrant
CPT/HCPCS: 36415; 78815; 80053; 82232; 82784; 83010; 83615; 84100; 84155; 84165; 84550; 85025; 85651; 86334; 99213; A9552

== ENCOUNTER → 2025-10-01 11:01 | Outpatient (BNVA) | payer OTHER, SELFPAY | PROVIDERS: PCP Registered Nurse; Visit Provider Internal Medicine | DX: Z45.018 Encounter for adjustment and management of other part of cardiac pacemaker (principal) | CPT/HCPCS: 93296 ==